=== PATIENT | male | born 1985 | race Two or more races ===

== ENCOUNTER 2021-06-24 10:40 | Emergency (ER) | payer OTHER, SELFPAY ==
--- NOTE | ~2021-06-24 | CT_ITS ---
EXAMINATION: CT HEAD WITHOUT CONTRAST CLINICAL INFORMATION: Right leg numbness/weakness for one week. COMPARISON: None TECHNIQUE: Contiguous axial imaging was performed from the skull base to vertex without intravenous administration of contrast. This CT examination was performed using dose optimization techniques as appropriate, variously including the following: *Automated exposure control *Adjustment of mA and/or kV according to patient size (this includes techniques or standardized protocols for targeted exams where dose is matched to indication/reason for exam; i.e. extremities or head) *Use of iterative reconstruction technique DLP: 874 mGy-cm FINDINGS: There is no evidence of acute intracranial hemorrhage or territorial infarction. No abnormal mass effect or midline shift is seen. Abreu to white matter differentiation is well preserved. No extra-axial fluid collections are identified. The ventricles are normal in size. There is no abnormal attenuation within the brain parenchyma. The osseous structures and soft tissues are normal. The mastoid air cells and visualized portions of the paranasal sinuses are well aerated. CT/CT head/brain wo con IMPRESSION: No acute intracranial process seen.
--- NOTE | ~2021-06-24 | XR_ITS ---
EXAMINATION: XR FOOT, RIGHT CLINICAL INFORMATION: Right dorsal foot pain and numbness COMPARISON: None TECHNIQUE: AP, lateral, and oblique views of the right foot. FINDINGS: The bones and soft tissues are normal. No fracture. Alignment is anatomic. Joint spaces are maintained. XR/XR foot RT min 3V IMPRESSION: Normal right foot.
[2021-06-24 10:50] VITALS: BP 135/73; PULSE 86; RESP 16; TEMP 37.2; O2SAT 95; BMI 32.5
--- NOTE | 2021-06-24 11:29 | ECG_ITS ---
Test Reason : SWELLING Blood Pressure : / mmHG Vent. Rate : 081 BPM Atrial Rate : 081 BPM P-R Int : 164 ms QRS Dur : 082 ms QT Int : 360 ms P-R-T Axes : 039 092 037 degrees QTc Int : 418 ms Normal sinus rhythm Rightward axis Borderline ECG No previous ECGs available Referred By: Sadia Milian Electronically Signed By:MENA PRADO
[2021-06-24 12:23] LABS: MANUAL DIFF FLAG NO
[2021-06-24 12:30] LABS: Basophils Absolute Auto 0.1 X10*3/uL (0.0-0.2); Basophils Percent Auto 0.7 % (0-2); Eosinophils Absolute Auto 0.4 X10*3/uL (0.0-0.4); Eosinophils Percent Auto 4.3 % (0-4); Hemoglobin 14.8 g/dl (14.0-18.0); Imm Gran Abs Auto 0.04 X10*3/uL (0.00-0.03); Imm Gran Pct Auto 0.5 % (0.0-0.4); Lymphocytes Absolute Auto 1.1 X10*3/uL (1.2-4.9); Lymphocytes Percent Auto 13.6 % (20-40); Mean Corpuscular HGB Conc 33.6 g/dl (31.0-36.0); Mean Corpuscular Hemoglobin 27.1 pg (27.0-33.0); Mean Corpuscular Volume 80.6 fL (80.0-98.0); Mean Platelet Volume 8.5 fL (9.4-12.4); Monocytes Absolute Auto 0.6 X10*3/uL (0.1-1.2); Monocytes Percent Auto 7.1 % (2-11); Neutrophils Absolute Auto 6.1 x10*3/uL (2.0-8.3); Neutrophils Percent Auto 73.8 % (45-73); Platelet Count 362 X10*3/uL (160-400); Red Blood Count 5.46 X10*6/uL (4.60-5.80); Red Cell Distribution Width 12.9 % (11.0-16.0); White Blood Count 8.3 X10*3/uL (4.8-10.8)
[2021-06-24 12:40] LABS: INTERNATIONAL NORM RATIO 1.2 (0.9-1.1); Prothrombin Time 13.2 SEC (9.9-13.0)
[2021-06-24 12:50] LABS: Alanine Aminotransferase 96 U/L (0-40); Albumin Level 4.4 g/dL (3.5-5.0); Alkaline Phosphatase 68 U/L (39-117); Anion Gap 14 (12-20); Aspartate Amino Transferase 27 U/L (5-37); Bilirubin Total 0.8 mg/dL (0.0-1.0); Blood Urea Nitrogen 11 mg/dL (9-16); Carbon Dioxide 24 mmol/L (22-29); Chloride 106 mmol/L (96-108); Creatinine Clr Calc Pharmacy 142.9; Estimated Glomerular Filt Rate > 60; Glucose Random 104 mg/dL (60-115); Magnesium 2.3 mg/dL (1.6-2.6); Potassium 4.3 mmol/L (3.3-5.1); Sodium 140 mmol/L (135-145); Total Protein 7.3 g/dL (6.5-8.0)
--- NOTE | 2021-06-24 12:50 | ED.GENADULT ---
HPI - General Adult General Chief complaint: Skin/Abscess/Foreign Body Stated complaint: STD check Time Seen by Provider: 06/24/21 11:05 Source: patient Mode of arrival: ambulatory Limitations: no limitations History of Present Illness HPI narrative: 36-year-old male with no significant past medical history presenting to the ED with multiple complaints which include lesions/sores to his mouth that started approximately 6 days ago after he had unprotected intercourse with the female that he reports ?was questionable as should not have slept with her?. His separate complaint is a wound to his right foot that started shortly after the lesions/sores on his lips and he believes that he might have scratched his foot after scratching his mouth/lips. He believes that the wound/lesion to his foot started shortly after the lesions/sores of his mouth. He reports that his right foot is usually much veneer drier feeder than the left foot and he is unsure why and is always very itchy. Although he has noticed in the past few days since he developed this wound to his right foot he has been having some numbness/tingling. He reports he feels like his gait is ?off as well he reports that he feels like his right leg/foot is weaker and he is walking with a limp. He reports a family history of diabetes. He wants to be tested for all STDs. He denies any fevers, chills, dizziness, headaches, neck pain/stiffness, trouble swallowing or breathing, recent falls or trauma, chest pain or shortness of breath, dyspnea on exertion, orthopnea, palpitations, lower extremity edema, calf tenderness, recent travel, PVD, recent immobilization, recent surgery or any other symptoms complaints or concerns at this time. MD complaint: Multiple complaints Onset (ago): day(s) (6) Related Data Previous Rx's Medication Instructions Recorded cephalexin 500 mg capsule 500 mg PO Q6H 10 Days #40 cap 06/24/21 doxycycline monohydrate 100 mg 100 mg PO BID 10 Days #20 cap 06/24/21 capsule valacyclovir 1 gram tablet 1,000 mg PO BID 10 Days #20 tab 06/24/21 (Valtrex) Allergies Allergy/AdvReac Type Severity Reaction Status Date / Time No Known Allergies Allergy Verified 06/24/21 11:29 Review of Systems Review of Systems: Constitutional : No Weight loss, No Fever, No Chills, No Night Sweats, No Fatigue, No Malaise ENT/Mouth : No Hearing loss, No Ear Pain, No Nasal Congestion, No Sinus Pain, No Hoarseness, No sore throat, No Rhinorrhea, No Swallowing Difficulty Eyes: No Eye Pain, No Swelling, No Redness, No Foreign Body, No Discharge, No Vision Changes Cardiovascular : No Chest Pain, No SOB, No Dyspnea on Exertion, No Orthopnea, No Edema, No Palpitations Respiratory : No Cough, No Sputum, No Wheezing, No Smoke Exposure, No Dyspnea Gastrointestinal : No Nausea, No Vomiting, No Diarrhea, No Constipation, No abdominal Pain, No Hematochezia, No Melena Genitourinary : no irregular bleeding, No Dysuria, No Urinary Frequency, No Hematuria, No Urinary Incontinence, No Urgency, No Flank Pain, No Urinary Flow Changes, No Hesitancy Musculoskeletal : No joint pain, No Myalgias, No Joint Swelling Skin : + Skin Lesions to lips and right foot Neuro : + paresthesias to right foot and mild weakness with limb per patient to right leg, No Loss of Consciousness, No Dizziness, No Headache Psych : No Anxiety/Panic, No Depression, No SI/HI/AH/VH, No Social Issues, Heme/Lymph: No Bruising, No Bleeding,No Lymphadenopathy Endocrine : No Polyuria, No Polydipsia, No Temperature Intolerance Patient denies a history of MRSA. Yes all other systems are reviewed and are negative COUNT INCLUDES THE [facility] Past Medical History Attestation statement: The following information was validated with the patient. Social History Social History Advance Directives: No Advance Directives Information Provided: No Physical Exam ED Vital Signs: Vital Signs - 24 hr 06/24/21 10:50 Temperature 98.9 F Pulse Rate 86 Respiratory Rate 16 Blood Pressure 135/73 Pulse Oximetry 95 BMI result Body Mass Index 32.5 vital signs have been reviewed as normal and appeared to be correct. Blood pressure normal. Heart rate normal. Respiration rate normal. Temperature normal. Oxygen saturation normal. Appearance: Alert. Oriented X3. No acute distress. Head: Normal external exam. Normocephalic. Atraumatic. Eyes: PERRLA. EOMI. Conjunctiva and sclera normal. Eyelids normal. ENT: Pharynx normal. Uvula midline. Patient has shallow ulcerated lesions to the lips that are tender to palpation questioning herpes simplex virus. Otherwise no additional lesions/ulcerations or masses noted on the tongue. Moist mucous membranes. Normal voice. No trismus noted. No drooling noted. No muffled voice noted. Neck: Normal inspection. Neck supple. FROM. No adenopathy. Thyroid Normal. No tracheal deviation noted. No crepitus is noted. No meningeal signs. No neck mass noted. No signs of trauma noted. CVS: Normal heart rate and rhythm. Heart sound normal. Pulses normal throughout. No murmurs/rales/gallops. Respiratory: No respiratory distress. Painless inspiration. Breath sounds normal. No wheezes/rales/rhonchi noted. Chest nontender. No crepitus is noted. No signs of trauma noted. No accessory muscle usage noted or decreased air movement noted. No signs of trauma. Abdomen: Soft and nontender. Bowel sounds normal in all 4 quadrants. No distention noted. No organomegaly noted. No visible injury noted. Back: No CVA tenderness. Full range of motion noted. Nontender. No signs of trauma. Patient neuro intact bilaterally and distally on all 4 extremities. Patient's reflexes intact bilaterally and distally on all 4 extremities. No rashes/lesion/induration/fluctuance or signs of infection noted. Skin: Skin warm and dry. Normal skin color. Normal skin turgor. No rashes/lesions/lacerations noted. Extremities: To the right foot dorsal aspect patient has a circular wound no surrounding erythema/streaking/induration/fluctuance or signs of infection noted. Otherwise all other extremities exhibit normal range of motion nontender. No lower extremity edema. No calf tenderness is noted. Neuro: Oriented X 3. No motor deficit. Patient reports decreased sensation to the right foot dorsal aspect although has normal sensation to the right leg. Otherwise no other sensory deficit. Reflexes normal. Normal steady gait. No focal neuro deficits noted. CN's II-XII intact bilaterally? Vascular: + radial pulses/+ 2 distal pedal pulses/+2 dorsalis pedis b/l. Normal cap refill. No cyanosis noted to upper extremity nails and lower extremity toes nails. Course Course Course Narrative: 11:30am - 36-year-old male with no significant past medical history presenting to the ED with multiple complaints which include lesions/sores to his mouth that started approximately 6 days ago after he had unprotected intercourse with the female that he reports ?was questionable as should not have slept with her?. His separate complaint is a wound to his right foot that started shortly after the lesions/sores on his lips and he believes that he might have scratched his foot after scratching his mouth/lips. He believes that the wound/lesion to his foot started shortly after the lesions/sores of his mouth. He reports that his right foot is usually much veneer drier feeder than the left foot and he is unsure why and is always very itchy. Although he has noticed in the past few days since he developed this wound to his right foot he has been having some numbness/tingling. He reports he feels like his gait is ?off as well he reports that he feels like his right leg/foot is weaker and he is walking with a limp. He reports a family history of diabetes. He wants to be tested for all STDs. He denies any rashes or lesions or discharge from the penis. Will obtain labs including an A1c level, CT scan of brain to evaluate for possible recent stroke over the past 6 days when this started the right leg weakness/numbness, obtain a syphilis/herpes and gonorrhea chlamydia order. Treat for herpes, EKG. And re-evaluate. Reevaluation(s) Reevaluation #1: - labs obtain ALT 96 otherwise all other labs are within normal limits. A1c level is 5.5. CT scan of brain within normal limits no acute processes noted. EKG normal sinus rhythm no acute ischemic changes noted. Right foot x-ray negative for any acute processes. Patient has syphilis/gonorrhea/chlamydia/herpes pending at this time. Will treat for possible herpes and possible foot wound/cellulitis instructions to follow-up with the wound clinic and to return if any new or worsening symptom to follow-up with primary care provider I gave him a list of providers that he can call to established a new primary care provider. Patient understands with and agrees with this plan. Time: 13:57 Medical Decision Making Medical Records Medical records reviewed: Yes I reviewed the patient's medical records. Lab Data Lab results reviewed: Yes I reviewed the patient's lab results. Result diagrams: 06/24/21 12:17 06/24/21 12:16 Labs: Lab Results 06/24/21 06/24/21 06/24/21 Range/Units 12:16 12:16 12:16 WBC (4.8-10.8) X10*3/uL RBC (4.60-5.80) X10*6/uL Hgb (14.0-18.0) g/dl Hct (42.0-52.0) % MCV (80.0-98.0) fL MCH (27.0-33.0) pg MCHC (31.0-36.0) g/dl RDW (11.0-16.0) % Plt Count (160-400) X10*3/uL MPV (9.4-12.4) fL Immature Gran % (Auto) (0.0-0.4) % Neut % (Auto) (45-73) % Lymph % (Auto) (20-40) % [place] % (Auto) (2-11) % Eos % (Auto) (0-4) % Baso % (Auto) (0-2) % Lymph # (Auto) (1.2-4.9) X10*3/uL [place] # (Auto) (0.1-1.2) X10*3/uL Eos # (Auto) (0.0-0.4) X10*3/uL Baso # (Auto) (0.0-0.2) X10*3/uL Abs Immat Gran (auto) (0.00-0.03) X10*3/uL Absolute Neuts (auto) (2.0-8.3) x10*3/uL Absolute Nucleated RBC (0.0-0.012) X10*3/uL Nucleated RBC % (auto) (0.0-0.2) /100WBC PT 13.2 H (9.9-13.0) SEC INR 1.2 H (0.9-1.1) Sodium 140 (135-145) mmol/L Potassium 4.3 (3.3-5.1) mmol/L Chloride 106 (96-108) mmol/L Carbon Dioxide 24 (22-29) mmol/L Anion Gap 14 (12-20) BUN 11 (9-16) mg/dL Creatinine 0.84 (0.5-1.4) mg/dL Estim Creat Clear Calc 142.9 Estimated GFR > 60 Random Glucose 104 (60-115) mg/dL Estimat Average Glucose 111 mg/dL Hemoglobin A1c % 5.5 % Calcium 10.0 (8.4-10.2) mg/dL Magnesium 2.3 (1.6-2.6) mg/dL Total Bilirubin 0.8 (0.0-1.0) mg/dL AST 27 (5-37) U/L ALT 96 H (0-40) U/L Alkaline Phosphatase 68 (39-117) U/L Total Protein 7.3 (6.5-8.0) g/dL Albumin 4.4 (3.5-5.0) g/dL 06/24/21 Range/Units 12:17 WBC 8.3 (4.8-10.8) X10*3/uL RBC 5.46 (4.60-5.80) X10*6/uL Hgb 14.8 (14.0-18.0) g/dl Hct 44.0 (42.0-52.0) % MCV 80.6 (80.0-98.0) fL MCH 27.1 (27.0-33.0) pg MCHC 33.6 (31.0-36.0) g/dl RDW 12.9 (11.0-16.0) % Plt Count 362 (160-400) X10*3/uL MPV 8.5 L (9.4-12.4) fL Immature Gran % (Auto) 0.5 H (0.0-0.4) % Neut % (Auto) 73.8 H (45-73) % Lymph % (Auto) 13.6 L (20-40) % [place] % (Auto) 7.1 (2-11) % Eos % (Auto) 4.3 H (0-4) % Baso % (Auto) 0.7 (0-2) % Lymph # (Auto) 1.1 L (1.2-4.9) X10*3/uL [place] # (Auto) 0.6 (0.1-1.2) X10*3/uL Eos # (Auto) 0.4 (0.0-0.4) X10*3/uL Baso # (Auto) 0.1 (0.0-0.2) X10*3/uL Abs Immat Gran (auto) 0.04 H (0.00-0.03) X10*3/uL Absolute Neuts (auto) 6.1 (2.0-8.3) x10*3/uL Absolute Nucleated RBC 0.000 (0.0-0.012) X10*3/uL Nucleated RBC % (auto) 0.0 (0.0-0.2) /100WBC PT (9.9-13.0) SEC INR (0.9-1.1) Sodium (135-145) mmol/L Potassium (3.3-5.1) mmol/L Chloride (96-108) mmol/L Carbon Dioxide (22-29) mmol/L Anion Gap (12-20) BUN (9-16) mg/dL Creatinine (0.5-1.4) mg/dL Estim Creat Clear Calc Estimated GFR Random Glucose (60-115) mg/dL Estimat Average Glucose mg/dL Hemoglobin A1c % % Calcium (8.4-10.2) mg/dL Magnesium (1.6-2.6) mg/dL Total Bilirubin (0.0-1.0) mg/dL AST (5-37) U/L ALT (0-40) U/L Alkaline Phosphatase (39-117) U/L Total Protein (6.5-8.0) g/dL Albumin (3.5-5.0) g/dL Imaging Data Right foot x-ray: Attestation: I personally reviewed and interpreted this imaging study as follows: Radiologist's impression: FINDINGS: The bones and soft tissues are normal. No fracture. Alignment is anatomic. Joint spaces are maintained.? XR/XR foot RT min 3V IMPRESSION: Normal right foot. CT scan of brain without contrast: Attestation: I personally reviewed and interpreted this imaging study as follows: Radiologist's impression: FINDINGS: There is no evidence of acute intracranial hemorrhage or territorial infarction. No abnormal mass effect or midline shift is seen. Abreu to white matter differentiation is well preserved. No extra-axial fluid collections are identified. The ventricles are normal in size. There is no abnormal attenuation within the brain parenchyma. The osseous structures and soft tissues are normal. The mastoid air cells and visualized portions of the paranasal sinuses are well aerated. ? CT/CT head/brain wo con IMPRESSION: No acute intracranial process seen. ECG Data Attestation: I personally reviewed and interpreted this ECG as follows: Interpretation: Normal sinus rhythm with ventricular rate of 81 with a right prabhakar axis deviation otherwise no acute ischemic changes are noted. No prior EKGs to compare to at this time. Discharge Plan Discharge Clinical Impression: Wound of foot, Encounter for assessment of STD exposure Patient Disposition: Home, Self-Care Instructions: Sexually Transmitted Diseases (ED), Safe Sex Practices (ED), Oral Herpes Simplex Virus Infections (ED), Acute Wounds (ED) Additional Instructions: You have pending lab results which include syphilis/gonorrhea/chlamydia and herpes culture if any are positive will contact you within 7-10 days. You can also check on the patient Portal sometime here results of, sooner than 1 week call you. We will not call you if you have negative results. Follow-up with her primary care provider. Use protected intercourse. Do not kiss anyone until your sores are gone. Prescriptions: New valacyclovir [Valtrex] 1 gram tablet 1,000 mg PO BID 10 Days Qty: 20 0RF doxycycline monohydrate 100 mg capsule 100 mg PO BID 10 Days Qty: 20 0RF cephalexin 500 mg capsule 500 mg PO Q6H 10 Days Qty: 40 0RF Print Language: Bolivian
[2021-06-24] MEDS: valACYclovir HCL 1,000 MG TABLET 1000 MG PO (13:25)
[2021-06-24 13:48] LABS: Estimated Average Glucose 111 mg/dL; Hemoglobin A1c % 5.5 %
[2021-06-24 17:54] LABS: CT PCR NOT DETECTED (Not Detect.); NG PCR NOT DETECTED (Not Detect.)
[2021-06-29 08:44] LABS: Syphilis Screen Nonreactive (Nonreactive)
== END 2021-06-24 15:33 | disposition home or self-care (01) ==
PROVIDERS: Physician Assistant Medical; Emergency Provider Emergency Medicine
DX: K13.79 Other lesions of oral mucosa (principal); Z20.2 Contact with and (suspected) exposure to infections with a predominantly sexual mode of transmission; S91.301A Unspecified open wound, right foot, initial encounter; X58.XXXA Exposure to other specified factors, initial encounter; Y93.9 Activity, unspecified; Y92.9 Unspecified place or not applicable; Y99.9 Unspecified external cause status
CPT/HCPCS: 36415; 70450; 73630; 80053; 83036; 83735; 85025; 85610; 86780; 87255; 87491; 87591; 93005; 99284

== ENCOUNTER 2021-07-28 05:01 | Emergency (ER) | payer MEDICAID, OTHER, SELFPAY ==
--- NOTE | ~2021-07-28 | XR_ITS ---
EXAMINATION: XR CHEST CLINICAL INFORMATION: Palpitations COMPARISON: None TECHNIQUE: Frontal view of the chest was obtained. FINDINGS: The lungs are clear with no focal consolidation. No evidence of pneumothorax, pulmonary edema, or pleural effusions. The cardiomediastinal silhouette is unremarkable. No acute osseous findings. XR/XR chest 1V IMPRESSION: No acute cardiopulmonary findings.
--- NOTE | 2021-07-28 05:09 | ECG_ITS ---
Test Reason : heart racing Blood Pressure : / mmHG Vent. Rate : 111 BPM Atrial Rate : 111 BPM P-R Int : 158 ms QRS Dur : 088 ms QT Int : 348 ms P-R-T Axes : 068 099 042 degrees QTc Int : 473 ms Sinus tachycardia Rightward axis Borderline ECG When compared to the previous EKG of No significant changes seen Referred By: Generic ED Physician Electronically Signed By:Raheem Castanon
[2021-07-28 05:22] VITALS: BP 158/86; PULSE 111; RESP 20; TEMP 36.4; O2SAT 96; BMI 31.7
[2021-07-28 05:23] LABS: Basophils Percent Auto 0.2 % (0-2); Eosinophils Absolute Auto 0.1 X10*3/uL (0.0-0.4); Eosinophils Percent Auto 0.5 % (0-4); Hematocrit 42.4 % (42.0-52.0); Hemoglobin 14.5 g/dl (14.0-18.0); Imm Gran Abs Auto 0.02 X10*3/uL (0.00-0.03); Imm Gran Pct Auto 0.2 % (0.0-0.4); Lymphocytes Percent Auto 9.8 % (20-40); MANUAL DIFF FLAG NO; Mean Corpuscular HGB Conc 34.2 g/dl (31.0-36.0); Mean Corpuscular Hemoglobin 27.3 pg (27.0-33.0); Mean Corpuscular Volume 79.8 fL (80.0-98.0); Mean Platelet Volume 8.2 fL (9.4-12.4); Monocytes Absolute Auto 0.7 X10*3/uL (0.1-1.2); Monocytes Percent Auto 6.9 % (2-11); Neutrophils Absolute Auto 8.3 x10*3/uL (2.0-8.3); Neutrophils Percent Auto 82.4 % (45-73); Platelet Count 331 X10*3/uL (160-400); Red Blood Count 5.31 X10*6/uL (4.60-5.80); Red Cell Distribution Width 13.2 % (11.0-16.0)
--- NOTE | 2021-07-28 05:37 | ED_ITS ---
HPI - Alcohol General Chief Complaint: ETOH/Substance Use Stated Complaint: ETOH Time Seen by Provider: 07/28/21 05:30 Source: patient Mode of arrival: ambulatory Limitations: no limitations History of Present Illness HPI narrative: Patient with history of alcohol abuse cocaine abuse for awhile today he came because he wants to go to detox he uses cocaine last night also had beer also patient has rash in the groin area for a while treated with a Lotrimin powder which did not work also patient want to be tested for STD he was here on 06/24 for same also patient had an episode of palpitations last night. Patient denies any penile discharge or urinary symptoms Related Data Previous Rx's Medication Instructions Recorded cephalexin 500 mg capsule 500 mg PO Q6H 10 Days #40 cap 06/24/21 doxycycline monohydrate 100 mg 100 mg PO BID 10 Days #20 cap 06/24/21 capsule valacyclovir 1 gram tablet 1,000 mg PO BID 10 Days #20 tab 06/24/21 (Valtrex) clotrimazole 1 % topical cream 1 appl TOPICAL BID #30 g 07/28/21 (Antifungal (clotrimazole)) Allergies Allergy/AdvReac Type Severity Reaction Status Date / Time No Known Allergies Allergy Verified 07/28/21 05:21 Review of Systems Review of Systems: Yes all other systems are reviewed and are negative [facility] Social History Social History Advance Directives: No Physical Exam ED Vital Signs: Vital Signs - 24 hr 07/28/21 05:22 Temperature 97.6 F Pulse Rate 111 H Respiratory Rate 20 Blood Pressure 158/86 H Pulse Oximetry 96 BMI result Body Mass Index 31.7 Appearance: Alert. Oriented X3. No acute distress. ENT: Pharynx normal. Oral Mucosa moist Neck: Normal inspection. Neck supple. CVS: Normal heart rate and rhythm. Pulses normal. Respiratory: No respiratory distress. Equal air entry bilateral, no wheezing/rales/rhonchi Abdomen: Soft and nontender. Bowel sounds are present, Skin: Skin warm and dry. Normal skin color. Normal skin turgor. IVDA track petra left forearm tinea cruris rash+ Extremities: No lower extremity edema. No calf tenderness Neuro: Oriented X 3. No motor deficit. No sensory deficit.No cerebellar signs , cranial nerves II-XII intact MDM - Alcohol MDM Narrative Medical decision making narrative: Patient advised to follow-up as outpatient for detox Medical Records Attestation: I reviewed the patient's medical records. Lab Data Attestation: I reviewed the patient's lab results. Result diagrams: 07/28/21 05:14 07/28/21 05:14 Labs: Lab Results 07/28/21 07/28/21 07/28/21 Range/Units 05:14 05:14 05:14 WBC 10.0 (4.8-10.8) X10*3/uL RBC 5.31 (4.60-5.80) X10*6/uL Hgb 14.5 (14.0-18.0) g/dl Hct 42.4 (42.0-52.0) % MCV 79.8 L (80.0-98.0) fL MCH 27.3 (27.0-33.0) pg MCHC 34.2 (31.0-36.0) g/dl RDW 13.2 (11.0-16.0) % Plt Count 331 (160-400) X10*3/uL MPV 8.2 L (9.4-12.4) fL Immature Gran % (Auto) 0.2 (0.0-0.4) % Neut % (Auto) 82.4 H (45-73) % Lymph % (Auto) 9.8 L (20-40) % [place] % (Auto) 6.9 (2-11) % Eos % (Auto) 0.5 (0-4) % Baso % (Auto) 0.2 (0-2) % Lymph # (Auto) 1.0 L (1.2-4.9) X10*3/uL [place] # (Auto) 0.7 (0.1-1.2) X10*3/uL Eos # (Auto) 0.1 (0.0-0.4) X10*3/uL Baso # (Auto) 0.0 (0.0-0.2) X10*3/uL Abs Immat Gran (auto) 0.02 (0.00-0.03) X10*3/uL Absolute Neuts (auto) 8.3 (2.0-8.3) x10*3/uL Absolute Nucleated RBC 0.000 (0.0-0.012) X10*3/uL Nucleated RBC % (auto) 0.0 (0.0-0.2) /100WBC Sodium 139 (135-145) mmol/L Potassium 3.5 (3.3-5.1) mmol/L Chloride 103 (96-108) mmol/L Carbon Dioxide 24 (22-29) mmol/L Anion Gap 16 (12-20) BUN 13 (9-16) mg/dL Creatinine 0.84 (0.5-1.4) mg/dL Estim Creat Clear Calc 141.3 Estimated GFR > 60 Random Glucose 105 (60-115) mg/dL Calcium 10.0 (8.4-10.2) mg/dL Troponin I High Sens < 3.5 (<3.5-35.0) ng/L Urine Color Urine Appearance Urine pH (5.0-8.0) Ur Specific [place]ike (1.005-1.025) Urine Protein (NEG-TRACE) MG/DL Urine Glucose (UA) (NEG) MG/DL Urine Ketones (NEG) MG/DL Urine Blood (NEG) Urine Nitrite (NEG) Ur Leukocyte Esterase (NEG) Urine RBC (0) /HPF Urine WBC (0-4) /HPF Ur Squamous Epith Cells /LPF Calcium Phosphate Cryst /LPF Amorphous Sediment /LPF Urine Bacteria /LPF Urine Mucus /LPF Urine Opiates Screen (Not Detect) Urine Fentanyl Screen (Not Detect) Ur Barbiturates Screen (Not Detect) Ur Phencyclidine Scrn (Not Detect) Ur Amphetamines Screen (Not Detect) U Benzodiazepines Scrn (Not Detect) Urine Cocaine Screen (Not Detect) U Marijuana (THC) Screen (Not Detect) Ethyl Alcohol mg/dL 07/28/21 07/28/21 07/28/21 Range/Units 05:14 05:48 05:48 WBC (4.8-10.8) X10*3/uL RBC (4.60-5.80) X10*6/uL Hgb (14.0-18.0) g/dl Hct (42.0-52.0) % MCV (80.0-98.0) fL MCH (27.0-33.0) pg MCHC (31.0-36.0) g/dl RDW (11.0-16.0) % Plt Count (160-400) X10*3/uL MPV (9.4-12.4) fL Immature Gran % (Auto) (0.0-0.4) % Neut % (Auto) (45-73) % Lymph % (Auto) (20-40) % [place] % (Auto) (2-11) % Eos % (Auto) (0-4) % Baso % (Auto) (0-2) % Lymph # (Auto) (1.2-4.9) X10*3/uL [place] # (Auto) (0.1-1.2) X10*3/uL Eos # (Auto) (0.0-0.4) X10*3/uL Baso # (Auto) (0.0-0.2) X10*3/uL Abs Immat Gran (auto) (0.00-0.03) X10*3/uL Absolute Neuts (auto) (2.0-8.3) x10*3/uL Absolute Nucleated RBC (0.0-0.012) X10*3/uL Nucleated RBC % (auto) (0.0-0.2) /100WBC Sodium (135-145) mmol/L Potassium (3.3-5.1) mmol/L Chloride (96-108) mmol/L Carbon Dioxide (22-29) mmol/L Anion Gap (12-20) BUN (9-16) mg/dL Creatinine (0.5-1.4) mg/dL Estim Creat Clear Calc Estimated GFR Random Glucose (60-115) mg/dL Calcium (8.4-10.2) mg/dL Troponin I High Sens (<3.5-35.0) ng/L Urine Color YELLOW Urine Appearance HAZY Urine pH 6.0 (5.0-8.0) Ur Specific [place] >= 1.030 H (1.005-1.025) Urine Protein 1+ H (NEG-TRACE) MG/DL Urine Glucose (UA) NEG (NEG) MG/DL Urine Ketones NEG (NEG) MG/DL Urine Blood NEG (NEG) Urine Nitrite NEG (NEG) Ur Leukocyte Esterase NEG (NEG) Urine RBC 0 (0) /HPF Urine WBC 0 (0-4) /HPF Ur Squamous Epith Cells NONE /LPF Calcium Phosphate Cryst 1+ /LPF Amorphous Sediment 1+ /LPF Urine Bacteria NONE /LPF Urine Mucus 2+ /LPF Urine Opiates Screen POSITIVE H (Not Detect) Urine Fentanyl Screen POSITIVE H (Not Detect) Ur Barbiturates Screen Not Detected (Not Detect) Ur Phencyclidine Scrn Not Detected (Not Detect) Ur Amphetamines Screen Not Detected (Not Detect) U Benzodiazepines Scrn Not Detected (Not Detect) Urine Cocaine Screen POSITIVE H (Not Detect) U Marijuana (THC) Screen Not Detected (Not Detect) Ethyl Alcohol < 10 mg/dL ECG Data ECG #1: Attestation: I personally reviewed and interpreted this ECG as follows: Interpretation: Sinus tachycardia heart rate 111 beats per minute normal interval normal axis no acute ST wave changes no acute ischemia Discharge Plan Discharge Clinical Impression: Alcohol abuse, Polysubstance abuse Patient Disposition: Home, Self-Care Instructions: Abuse of Alcohol (ED), Jock Itch (ED), Polysubstance Abuse (ED) Additional Instructions: Follow-up with detox Apply Lotrimin lotion as prescribed for jock itch Prescriptions: New clotrimazole [Antifungal (clotrimazole)] 1 % cream 1 appl topical BID Qty: 30 0RF No Action valacyclovir [Valtrex] 1 gram tablet 1,000 mg PO BID 10 Days Qty: 20 0RF doxycycline monohydrate 100 mg capsule 100 mg PO BID 10 Days Qty: 20 0RF cephalexin 500 mg capsule 500 mg PO Q6H 10 Days Qty: 40 0RF
[2021-07-28 05:39] LABS: Anion Gap 16 (12-20); Blood Urea Nitrogen 13 mg/dL (9-16); Carbon Dioxide 24 mmol/L (22-29); Chloride 103 mmol/L (96-108); Creatinine Clr Calc Pharmacy 141.3; Estimated Glomerular Filt Rate > 60; Glucose Random 105 mg/dL (60-115); Potassium 3.5 mmol/L (3.3-5.1); Sodium 139 mmol/L (135-145)
[2021-07-28 05:42] LABS: Ethanol < 10 mg/dL
[2021-07-28 05:45] LABS: Troponin-I High Sensitivity < 3.5 ng/L (<3.5-35.0)
--- NOTE | 2021-07-28 05:53 | PC.NURSE ---
Urine obtained and sent. at bedside for primary eval.
[2021-07-28 05:55] LABS: Appearance Urine HAZY; Color Urine YELLOW; Glucose Urine UA NEG (NEG); Leukocyte Esterase Urine NEG (NEG); Nitrite Urine NEG (NEG); Specific Gravity - Urine >= 1.030 (1.005-1.025); UACC Culture Trigger NO; Urine Blood NEG (NEG); Urine Ketones NEG (NEG); Urine Protein 1+ MG/DL (NEG-TRACE)
[2021-07-28 06:06] LABS: Amorphous Sediment Urine 1+ /LPF; Calcium Phosphate Crystals Ur 1+ /LPF; Mucus Urine 2+ /LPF; RBC Urine 0 /HPF (0); WBC Urine 0 /HPF (0-4)
[2021-07-28 06:11] LABS: Amphetamine Screen Urine Not Detected (Not Detect); Barbiturates, Urine Not Detected (Not Detect); Benzodiazepines Screen Urine Not Detected (Not Detect); Cannabinoid Screen Urine Not Detected (Not Detect); Cocaine Screen Urine POSITIVE (Not Detect); Fentanyl, urine POSITIVE (Not Detect); Opiate Screen Urine POSITIVE (Not Detect); Phencyclidine Screen Urine Not Detected (Not Detect)
--- NOTE | 2021-07-28 06:32 | PC.NURSE ---
This RN at bedside for discharge. Pt frustrated, stating I came here for help, I need to be sectioned. This RN providing pt with detox paperwork and a portable phone to begin calling detox centers. Pt agreeable to staying until 929 to speak with a cost recovery technician.
--- NOTE | 2021-07-28 06:46 | PC.NURSE ---
Pt requesting to leave, pt no longer wishes to speak to a employment coach. Pt provided with discharge paperwork and detox information.
[2021-07-28 09:03] LABS: CT PCR NOT DETECTED (Not Detect.); NG PCR NOT DETECTED (Not Detect.)
== END 2021-07-28 06:48 | disposition home or self-care (01) ==
PROVIDERS: Emergency Provider Internal Medicine
DX: F10.10 Alcohol abuse, uncomplicated (principal); Y90.0 Blood alcohol level of less than 20 mg/100 ml; R00.2 Palpitations; F11.10 Opioid abuse, uncomplicated; F14.10 Cocaine abuse, uncomplicated; Z79.899 Other long term (current) drug therapy
CPT/HCPCS: 36415; 71045; 80048; 80307; 81001; 81003; 82077; 84484; 85025; 87491; 87591; 93005; 99283; 99284

== ENCOUNTER 2021-08-04 19:58 | Emergency (ER) | payer MEDICAID, SELFPAY ==
[2021-08-04 20:11] VITALS: BP 156/61; PULSE 108; RESP 20; TEMP 37.4; O2SAT 96; BMI 31.7
--- NOTE | 2021-08-04 20:22 | PC.NURSE ---
[facility] at bedside
[2021-08-04 20:42] LABS: COVID-19 Test Negative (Negative)
[2021-08-04] MEDS: LORazepam 1 MG TABLET 2 MG PO (21:08)
--- NOTE | 2021-08-04 21:09 | PC.NURSE ---
LAN assessed the patient, disposition section 12 inpatient bed search, patient not happy with disposition, this medical technical writer explained section 12 A to the patient/patient verbalized understanding, Ativan 2 mg po administered as ordered/pending effect, will continue to monitor.
--- NOTE | 2021-08-04 21:38 | MHC.RECOVSUP ---
? Reason for consult:Recovery Support o Current location:[facility] o Identified substance use concern:N/A - Support ? Intervention: o Community resources provided o Harm reduction discussion ? Plan: o Referral to [facility] o Follow up tomorrow o Patient awaiting crisis evaluation o Patient to follow up with [facility] after discharge ? Additional information:Patient states hehad a Nervous Breakdown . Patient made vague SI statements. Patient denies any recent substance use. Suggested a BAL and / Tox screen to Dr. Love. Patient refuses detox. Patient was receptive to MAT and I referred him to the [facility]. Patient has a hx of MAT for his ETOH substance use disorder.( Vivitrol). [facility] sectioned him. Referred him to [facility] and gave him community resources.
[2021-08-04 22:20] LABS: Ethanol < 10 mg/dL
--- NOTE | 2021-08-04 23:24 | PC.NURSE ---
RN AWARE THAT PATIENT REFUSED TO GIVE THIS STAFF A URINE SAMPLE.
--- NOTE | 2021-08-04 23:31 | ED_ITS ---
HPI - Psych General Chief Complaint: ETOH/Substance Use Stated Complaint: SI Time Seen by Provider: 08/04/21 20:44 Source: patient and EMS Mode of arrival: EMS Limitations: no limitations History of Present Illness HPI Narrative: Patient comes to the emergency room by EMS. I have heard from [facility] that the patient was out in the street, causing a major scene, making suicidal statements. Police department had to close and entire Street in [place] and talked to the patient, and convince him to come to the hospital. It seems that the patient decided to call PD and EMS after she found the pa fredy's/her boyfriend hanging out with a group of people who are known to use drugs. Patient denies suicidal or homicidal ideation. Patient is tearful, not giving much history. Patient states he has been off his medications. Related Data Home Medications Medication Instructions Recorded Confirmed baclofen 10 mg tablet 1 tab PO TID 08/04/21 08/04/21 bupropion HCl 100 mg tablet 1 tab PO DAILY PRN 08/04/21 08/04/21 quetiapine 25 mg tablet 1 tab PO BEDTIME 08/04/21 08/04/21 Allergies Allergy/AdvReac Type Severity Reaction Status Date / Time No Known Allergies Allergy Verified 07/28/21 05:21 Review of Systems Review of Systems: Constitutional : No Weight loss, No Fever, No Chills, No Night Sweats, No Fatigue, No Malaise ENT/Mouth : No Hearing loss, No Ear Pain, No Nasal Congestion, No Sinus Pain, No Hoarseness, No sore throat, No Rhinorrhea, No Swallowing Difficulty Eyes: No Eye Pain, No Swelling, No Redness, No Foreign Body, No Discharge, No Vision Changes Cardiovascular : No Chest Pain, No SOB, No Dyspnea on Exertion, No Orthopnea, No Edema, No Palpitations Respiratory : No Cough, No Sputum, No Wheezing, No Smoke Exposure, No Dyspnea Gastrointestinal : No Nausea, No Vomiting, No Diarrhea, No Constipation, No abdominal Pain, No Hematochezia, No Melena Genitourinary : no irregular bleeding, No Dysuria, No Urinary Frequency, No Hematuria, No Urinary Incontinence, No Urgency, No Flank Pain, No Urinary Flow Changes, No Hesitancy Musculoskeletal : No joint pain, No Myalgias, No Joint Swelling Skin : No Skin Lesions, No rash Neuro : No Weakness, No Numbness, No Paresthesias, No Loss of Consciousness, No Dizziness, No Headache Psych : Complaining of anxiety, depression, states he had a nervous breakdown, made vague SI statements Heme/Lymph: No Bruising, No Bleeding,No Lymphadenopathy Endocrine : No Polyuria, No Polydipsia, No Temperature Intolerance [facility] Social History Social History Advance Directives: No Advance Directives Information Provided: Yes Physical Exam Vital Signs: Vital Signs: Last Vital Signs Temp 99.3 F 08/04/21 20:11 Pulse 108 H 08/04/21 20:11 Resp 20 08/04/21 20:11 BP 156/61 H 08/04/21 20:11 Pulse Ox 96 08/04/21 20:11 BMI result Body Mass Index 31.7 Const: Other: Appearance: Alert. Oriented X3. No acute distress. Tearful Eyes: Pupils equal, round and reactive to light. ENT: Pharynx normal. Neck: Normal inspection. Neck supple. No lymph nodes noted. No crepitus CVS: Normal heart rate and rhythm. Pulses normal. Normal S1 and S2 Respiratory: No respiratory distress. Breath sounds normal. No Wheezing. No rales Abdomen: Soft and nontender. No rigidity. No distention. Skin: Skin warm and dry. Normal skin color. Normal skin turgor. Extremities: No lower extremity edema. No Lacerations. No Rash Neuro: Oriented X 3. No motor deficit. No sensory deficit. Moving all extremities. No slurred speech. CN 2 through 12 grossly intact Psych: calm, since depressed, teary Course Course Course Narrative: [facility] and the women's soccer coach and myself spoke to the patient. Patient is not suicidal or homicidal. Patient admits to having a nervous breakdown. Patient will stay overnight in the [facility] and the [facility] team will re-evaluate the patient in the morning. At this time, patient refuses detox. Patient was sectioned by [facility] Patient agreed to a blood alcohol level for [facility] to evaluate the patient. Physician observationstarted at 23:35 I was informed by the patient's nurse that the urine test was requested. Patient agreed, but the patient came out of the bathroom with a urine cup filled with cold water [facility] - Psych Lab Data Labs: Lab Results 08/04/21 08/04/21 Range/Units 20:21 22:02 Ethyl Alcohol < 10 mg/dL COVID-19 (YONATHAN) Negative (Negative) COVID-19 Clin Com See Note Discharge Plan Discharge Clinical Impression: Post traumatic stress disorder Patient Disposition: Still a Patient Prescriptions: No Action quetiapine 25 mg tablet 1 tab PO BEDTIME 0RF bupropion HCl 100 mg tablet 1 tab PO DAILY PRN (Reason: Anxiety) 0RF baclofen 10 mg tablet 1 tab PO TID 0RF
[2021-08-05 06:24] VITALS: RESP 16
--- NOTE | 2021-08-05 06:35 | PC.NURSE ---
Patient slept through the night, no distress observed/reported, asymptomatic of withdrawal, refused to provide urine sample with no explanation as to why, med rec completed/pending provider's approval, disposition per [facility] is section 12 inpatient bed search, patient got upset and agitated when disposition was made aware, Ativan 2 mg po administered as ordered, behavior non concerning at this time with high risk for escalation, will continue to monitor.
--- NOTE | 2021-08-05 07:14 | PC.NURSE ---
patient appears to remain asleep at present respirations are even and unlabored patient appears in no distress
--- NOTE | 2021-08-05 12:23 | P.CNPS_ITS ---
History of Present Illness Date of Service: 08/05/2021 Chief Complaint: SI Discussed with referring provider: Yes Sources of Information: patient interviewed, chart reviewed and crisis/core team assessment reviewed HPI Narrative: Mr. Buchanan is a 36 year-old male with hx of opioid, cocaine use disorder who was brought via EMS after his GF called police as pt was increasingly more agitated. Per [facility] crisis report, Pt was screaming, combative, telling police to shoot him, that he had lost everything. In the ED his utox was positive for cocaine, fentanyl and opioids. In the ED, pt asking to be discharged. 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 Pt explained that his GF had called police as he was agitated prior to police coming to the scene. Pt does admit that cocaine use probably had something to do with his agitated reaction but also minimizes extend to which substances are affecting his mood and relationships in his life. Pt adamantly denies suicidal or homicidal ideation. Pt states he cares about his GF but understands that she was in shock by his behaviors and also understands she may not want him back to the apartment. Pt denies VH/AH. He does not appear psychotic. no delusional content reported or noted. Collateral information from GF, Angie: reports pt with increase substance use affecting their relationship, his relationsihp with his family. Angie reports asking him to get help. She notes he will end up alone, I can't take this. No concerns of suicidal ideation but notes that his ongoing substance use is affecting his mood. Angie reports more recent arguments due to his substance use. This check writer explained to Angie that at this point no imminent safety concerns in terms of suicidal or homicidal thoughts. However, pt chronic risk of self harm or harm to others due to substance use. Pt at this point declines referrals for substance use treatment or psychiatric follow up. Mr. Delatorre was given NARCAN prior to discharge after conversation of harm reduction. Diagnostics Vital Signs (24Hr): Vital Signs - 24 hr 08/04/21 20:11 08/05/21 06:24 Temperature 99.3 F Pulse Rate 108 H Respiratory Rate 20 16 Blood Pressure 156/61 H Pulse Oximetry 96 BMI result Body Mass Index 31.7 Labs Labs: Laboratory Results - last 48 hr 08/04/21 08/04/21 20:21 22:02 Ethyl Alcohol < 10 COVID-19 ([facility]ATHAN) Negative COVID-19 Clin Com See Note Mental Status Exam Mental Status Exam Narrative: Appearance: casually groomed, fair hygiene in NAD Behavior: guarded, irritable, superficially cooperative psychomotor: no agitation or retardation noted Speech:clear, normal rate/rhythm/volume, spontaneous Thought process: linear Thought content: no signs of psychosis/delusions, wanting to go to work Mood: okay Affect: somewhat irritable SI:adamantly denies HI:denies VH/AH:none Delusions:none Insight/judgment:poor x 2. Memory/cog: alert, oriented x 3. grossly intact to conversational testing. Medications Allergies Allergies Allergy/AdvReac Type Severity Reaction Status Date / Time No Known Allergies Allergy Verified 07/28/21 05:21 Assessment & Plan Assessment & Plan (1) Cocaine use disorder, moderate, dependence: Status: Acute Code(s): F14.20 - Cocaine dependence, uncomplicated (2) Opioid use disorder, moderate, dependence: Status: Acute Code(s): F11.20 - Opioid dependence, uncomplicated (3) Cocaine-induced mood disorder with depressive symptoms: Status: Acute Code(s): F14.94 - Cocaine use, unspecified with cocaine-induced mood disorder Plan Mr. Delatorre is a 36 year-old male with hx of opioid/cocaine use. Brought to [facility] ED after GF called police as pt agitated, vague suicidal statement. Pt currently denies suicidal or homicidal ideation. Collateral information from GF- mostly concern as to how substances affecting his relationships, ability to function and mood. No imminent safety concerns in terms of suicidal or homicidal ideation. Pt does minimize effects of substances on mood/relationships ability to function. He declines referrals for dual diagnosis programs. GIVEN NARCAN AT TIME OF DISCHARGE. PLAN 1. No need for inpatient psychiatric admission at this point in that there is no imminent safety concerns in terms of suicidal or homicidal ideation. Pt does have chronic risk of self harm or harm to other due to ongoing substance use (cocaine increases aggression, irritability, erradic behaviors) but not due to current active suicidality/homicidal concerns. Pt currently declines referral for programs for substance use. I spent _25 minutes with the patient and/or on the patient floor today, greater than?50% of which was spent counseling/coordinating care.
[2021-08-05] MEDS: Naloxone HCl Nasal TAKE HOME 4 MG SPRAY NOSTRILALT (12:29)
== END 2021-08-05 12:34 | disposition home or self-care (01) ==
PROVIDERS: Emergency Provider Emergency Medicine
DX: F43.10 Post-traumatic stress disorder, unspecified (principal); R45.851 Suicidal ideations; Z20.822 Contact with and (suspected) exposure to COVID-19
CPT/HCPCS: 36415; 82077; 87635; 99283

== ENCOUNTER 2021-08-06 18:52 | Emergency (ER) | payer MEDICAID, SELFPAY ==
--- NOTE | 2021-08-06 | ECG_ITS ---
Test Reason : OVERDOSE Blood Pressure : / mmHG Vent. Rate : 095 BPM Atrial Rate : 095 BPM P-R Int : 146 ms QRS Dur : 084 ms QT Int : 348 ms P-R-T Axes : 049 089 047 degrees QTc Int : 437 ms Normal sinus rhythm Normal ECG When compared with ECG of 28-JUL-2021 05:06, No significant change was found Referred By: Generic ED Physician Electronically Signed By:GUILLERMO BELTRAN MD
--- NOTE | ~2021-08-06 | XR_ITS ---
EXAMINATION: RIGHT ANKLE, RIGHT FOOT CLINICAL INFORMATION: Right ankle and foot pain COMPARISON: Right foot 06/24/2021 TECHNIQUE: 2 views right ankle, 3 views right foot FINDINGS: No significant bone, joint or soft tissue abnormality is seen. There is been no interval change when compared to the study from 06/24/2021 XR/XR foot RT min 3V IMPRESSION: No abnormality is detected.
--- NOTE | ~2021-08-06 | XR_ITS ---
EXAMINATION: XR CHEST CLINICAL INFORMATION: Shortness of breath COMPARISON: 07/28/2021 TECHNIQUE: Frontal view of the chest was obtained. FINDINGS: No significant abnormality is noted involving the heart, lungs, mediastinum, bony thorax or soft tissues. XR/XR chest 1V IMPRESSION: Unremarkable examination.
--- NOTE | ~2021-08-06 | XR_ITS ---
EXAMINATION: RIGHT ANKLE, RIGHT FOOT CLINICAL INFORMATION: Right ankle and foot pain COMPARISON: Right foot 06/24/2021 TECHNIQUE: 2 views right ankle, 3 views right foot FINDINGS: No significant bone, joint or soft tissue abnormality is seen. There is been no interval change when compared to the study from 06/24/2021 XR/XR ankle RT min 3V IMPRESSION: No abnormality is detected.
--- NOTE | ~2021-08-06 | US_ITS ---
EXAMINATION: US VENOUS ULTRASOUND WITH DOPPLER LOWER EXTREMITY, RIGHT CLINICAL INFORMATION: Right lower extremity edema, pain and swelling COMPARISON: None TECHNIQUE: Ultrasound of the deep veins is performed from the hip to the calf with compression sonography and color and pulse Doppler assessment. Spectral analysis with color-flow imaging is performed. FINDINGS: There is normal venous compression and respiratory variation and augmented flow. The visualized common femoral vein, superficial femoral vein, profunda femoral vein, popliteal vein, and the trifurcation region shows no evidence of deep venous thrombosis. There is no significant popliteal fossa cyst. Significant subcutaneous emphysema noted on the dorsum of the foot. If the patient's symptoms persist, followup ultrasound in 5 days 7 days might be of value to exclude proximal propagation from a non-visualized calf vein. US/US venous duplex LE RT IMPRESSION: No DVT demonstrated in the right lower extremity.
--- NOTE | 2021-08-06 19:22 | PC.NURSE ---
patient intially presented to ED in no distress and alert and oriented. patient went to bathroom and came out very disoriented and diaphoretic. patient reports doing coke, but while being triaged become solument and drops O2 sat 68% on RA. 4mg intranasal narcan administered. but still altered, but more alert. patient brought back from triage at this time
[2021-08-06] MEDS: Naloxone HCl Nasal 4 MG SPRAY NOSTRILALT (19:31)
[2021-08-06 19:42] VITALS: PULSE 95; RESP 16; O2SAT 99; BMI 31.0
[2021-08-06 19:47] VITALS: BP 124/80
--- NOTE | 2021-08-06 19:49 | ED.GENADULT ---
HPI - General Adult General Chief complaint: General Medical Stated complaint: crisis Time Seen by Provider: 08/06/21 19:48 Source: patient Mode of arrival: ambulatory Limitations: no limitations History of Present Illness HPI narrative: 36-year-old male presenting to the emergency department as a walk-in patient, unsure why patient initially presented however it was noted that patient was leaving the bathroom in the waiting room acting bizarre, or retic behavior, gasping for air. He was immediately rushed to the main emergency department and given Narcan as his pupils were pinpoint and he admits to cocaine use , when I asked him about opiates he says I do not think so. He tells me he thinks he did cocaine however he is not certain. Tells me he thinks he did 20 bags. He is an IV drug abuser. He is also complaining of right ankle/foot pain status post rolling his ankle while on the [employer] track earlier today. Patient is currently complaining of centralize nonradiating sharp 10/10 chest pain and palpitations. He tells me he was not having this before. He denies shortness of breath, nausea, vomiting, abdominal pain, back pain, headache, vision changes, dizziness. Denies SI and HI. Onset (ago): day(s) (1) Location: right (Ankle/foot) Radiation: non-radiation Severity: severe Severity scale (1-10): 10 Quality: constant Pain Consistency: constant Relieving factors: none Exacerbating factors: none Associated symptoms: denies other symptoms Treatments prior to arrival: none Related Data Home Medications Medication Instructions Recorded Confirmed baclofen 10 mg tablet 1 tab PO TID 08/04/21 08/06/21 bupropion HCl 100 mg tablet 1 tab PO DAILY PRN 08/04/21 08/06/21 quetiapine 25 mg tablet 1 tab PO BEDTIME 08/04/21 08/06/21 Allergies Allergy/AdvReac Type Severity Reaction Status Date / Time No Known Allergies Allergy Verified 07/28/21 05:21 Review of Systems Review of Systems: Constitutional : No Weight loss, No Fever, No Chills, No Fatigue, No Malaise ENT/Mouth : No sore throat, No Rhinorrhea Eyes: No Eye Pain, No Swelling, No Redness Cardiovascular : + Chest Pain, No SOB, No Dyspnea on Exertion, No Orthopnea, No Edema, + Palpitations Respiratory : No Cough, No Sputum, No Wheezing Gastrointestinal : No Nausea, No Vomiting, No Diarrhea, No Constipation, No abdominal Pain, No Hematochezia, No Melena Genitourinary : No Dysuria, No Urinary Frequency, No Hematuria, Musculoskeletal : No joint pain, No Myalgias, No Joint Swelling Skin : No Skin Lesions, No rash Neuro : No Weakness, No Numbness, No Dizziness, No Headache Psych : No Anxiety/Panic, No Depression All other systems reviewed and are negative Yes all other systems are reviewed and are negative [facility] Past Medical History Attestation statement: The following information was validated with the patient. Source: old records reviewed and nursing notes reviewed Social History Social History Advance Directives: No Physical Exam ED Vital Signs: Vital Signs - 24 hr 08/06/21 19:42 08/06/21 19:47 Pulse Rate 95 Respiratory Rate 16 Blood Pressure 124/80 Pulse Oximetry 99 BMI result Body Mass Index 31.0 Vital signs stable Appearance: Alert.? Oriented X3.? No acute distress.? Head: Normocephalic, atraumatic, no step-offs or deformities Eyes: Pupils equal, round and reactive to light.? Bilateral pupils pinpoint ENT: Pharynx normal.? Neck: Normal inspection.? Neck supple.? CVS: Normal heart rate and rhythm.? Pulses normal.? Respiratory: No respiratory distress.? Breath sounds normal.? Abdomen: Soft and nontender.? Skin: Skin warm and dry.? Normal skin color.? Normal skin turgor.? Extremities: No lower extremity edema.? No calf ttp. 5/5 strength to bilateral upper and lower extremities + ecchymosis, edema to right ankle/foot. 2+ dorsalis pedis and posterior tibialis pulses equal in bilateral on palpation and with auscultation with Doppler. Sensory motor intact to bilateral upper and lower extremities, no step-offs or deformities, no evident ligament or tendon involvement. Back: No midline tenderness, no C-spine tenderness, full range of motion, no CVA tenderness bilaterally Neuro: Oriented X 3.? No motor deficit.? No sensory deficit. CN 2-12 intact Course Reevaluation(s) Reevaluation #1: Care team Maria Elena spoke to patient patient arsenio SI and HI, would like referal to therapy and a detox program. passenger coach driver is speaking to patient at this time. Time: 20:30 Reevaluation #2: CBC within normal limits. Chemistry with no acute electrolyte abnormalities. Transaminases noted to be elevated, so his bilirubin however patient has no pain to palpation of abdomen. COVID negative. X-ray of the ankle no abnormalities. X-ray of the foot with no abnormalities. Chest x-ray unremarkable. Venous duplex with no DVT. Patient ambulating with steady gait, awake, alert and oriented x4. Patient will be placed in an air cast and will be given crutches. Advised him to follow-up with orthopedics. At this time patient appears much better, in no acute distress, stable vital signs. Patient denying SI and HI. He tells me he just wanted to speak to somebody in get information on how to possibly go to detox. Patient was evaluated by the care team and resource recovery engineer, both of which gave patient resources for outpatient detox. Patient will get a referral for therapy as discussed with him by care team, resource recovery engineer give patient detox information. Time: 23:13 Reevaluation #3: I went to go to speak to patient about discharge, slightly drowsy. Patient will stay until tomorrow morning and then get discharge as he does not have a safe ride home at this time. At this time patient will be placed in physician observation to allow more time for patient disposition based off improvement. At time observation was started patient common cooperative no acute distress. Time: 00:09 Medical Decision Making [facility] Narrative Medical decision making narrative: 1928 36-year-old male presents the emergency department for unknown reason however he was found to be gasping, with bizarre behavior after using the restroom in the waiting room. Patient admits to drug use, tells me he thinks use cocaine maybe was opiates he is uncertain he tells me use 20 bags IV. When they initially found him he was minimally responsive with pinpoint pupils, he was given Narcan with good response. Physical examination significant for male with bizarre retic behavior, uncontrolled movements of upper and lower extremities, swollen, ecchymotic right ankle/foot with 2+ posterior tibialis and dorsalis pedis pulses equal bilateral. No calf tenderness to palpation. Lungs clear. Regular rate and rhythm. Abdomen soft nontender nondistended. Bilateral pupils pinpoint Plan at this time is x-ray of the right ankle/foot, CBC, CMP, troponin, EKG, continuous cardiac monitoring. Medical Records Medical records reviewed: Yes I reviewed the patient's medical records. Lab Data Lab results reviewed: Yes I reviewed the patient's lab results. Result diagrams: 08/06/21 19:49 08/06/21 19:50 Labs: Lab Results 08/06/21 08/06/21 08/06/21 Range/Units 19:49 19:49 19:50 WBC 10.2 (4.8-10.8) X10*3/uL RBC 5.29 (4.60-5.80) X10*6/uL Hgb 14.4 (14.0-18.0) g/dl Hct 42.7 (42.0-52.0) % MCV 80.7 (80.0-98.0) fL MCH 27.2 (27.0-33.0) pg MCHC 33.7 (31.0-36.0) g/dl RDW 12.4 (11.0-16.0) % Plt Count 321 (160-400) X10*3/uL MPV 8.7 L (9.4-12.4) fL Immature Gran % (Auto) 0.3 (0.0-0.4) % Neut % (Auto) 75.2 H (45-73) % Lymph % (Auto) 12.4 L (20-40) % [place] % (Auto) 11.1 H (2-11) % Eos % (Auto) 0.5 (0-4) % Baso % (Auto) 0.5 (0-2) % Lymph # (Auto) 1.3 (1.2-4.9) X10*3/uL [place] # (Auto) 1.1 (0.1-1.2) X10*3/uL Eos # (Auto) 0.1 (0.0-0.4) X10*3/uL Baso # (Auto) 0.1 (0.0-0.2) X10*3/uL Abs Immat Gran (auto) 0.03 (0.00-0.03) X10*3/uL Absolute Neuts (auto) 7.6 (2.0-8.3) x10*3/uL Absolute Nucleated RBC 0.000 (0.0-0.012) X10*3/uL Nucleated RBC % (auto) 0.0 (0.0-0.2) /100WBC Sodium 140 (135-145) mmol/L Potassium 4.1 (3.3-5.1) mmol/L Chloride 101 (96-108) mmol/L Carbon Dioxide 29 (22-29) mmol/L Anion Gap 14 (12-20) BUN 17 H (9-16) mg/dL Creatinine 1.05 (0.5-1.4) mg/dL Estim Creat Clear Calc 111.8 Estimated GFR > 60 Random Glucose 99 (60-115) mg/dL Calcium 10.0 (8.4-10.2) mg/dL Total Bilirubin 1.3 H (0.0-1.0) mg/dL AST 105 H (5-37) U/L ALT 68 H (0-40) U/L Alkaline Phosphatase 67 (39-117) U/L Troponin I High Sens < 3.5 (<3.5-35.0) ng/L Total Protein 7.2 (6.5-8.0) g/dL Albumin 4.5 (3.5-5.0) g/dL Urine Opiates Screen (Not Detect) Urine Fentanyl Screen (Not Detect) Ur Barbiturates Screen (Not Detect) Ur Phencyclidine Scrn (Not Detect) Ur Amphetamines Screen (Not Detect) U Benzodiazepines Scrn (Not Detect) Urine Cocaine Screen (Not Detect) U Marijuana (THC) Screen (Not Detect) COVID-19 (YONATHAN) (Negative) COVID-19 Clin Com 08/06/21 08/06/21 Range/Units 21:44 22:24 WBC (4.8-10.8) X10*3/uL RBC (4.60-5.80) X10*6/uL Hgb (14.0-18.0) g/dl Hct (42.0-52.0) % MCV (80.0-98.0) fL MCH (27.0-33.0) pg MCHC (31.0-36.0) g/dl RDW (11.0-16.0) % Plt Count (160-400) X10*3/uL MPV (9.4-12.4) fL Immature Gran % (Auto) (0.0-0.4) % Neut % (Auto) (45-73) % Lymph % (Auto) (20-40) % [place] % (Auto) (2-11) % Eos % (Auto) (0-4) % Baso % (Auto) (0-2) % Lymph # (Auto) (1.2-4.9) X10*3/uL [place] # (Auto) (0.1-1.2) X10*3/uL Eos # (Auto) (0.0-0.4) X10*3/uL Baso # (Auto) (0.0-0.2) X10*3/uL Abs Immat Gran (auto) (0.00-0.03) X10*3/uL Absolute Neuts (auto) (2.0-8.3) x10*3/uL Absolute Nucleated RBC (0.0-0.012) X10*3/uL Nucleated RBC % (auto) (0.0-0.2) /100WBC Sodium (135-145) mmol/L Potassium (3.3-5.1) mmol/L Chloride (96-108) mmol/L Carbon Dioxide (22-29) mmol/L Anion Gap (12-20) BUN (9-16) mg/dL Creatinine (0.5-1.4) mg/dL Estim Creat Clear Calc Estimated GFR Random Glucose (60-115) mg/dL Calcium (8.4-10.2) mg/dL Total Bilirubin (0.0-1.0) mg/dL AST (5-37) U/L ALT (0-40) U/L Alkaline Phosphatase (39-117) U/L Troponin I High Sens (<3.5-35.0) ng/L Total Protein (6.5-8.0) g/dL Albumin (3.5-5.0) g/dL Urine Opiates Screen POSITIVE H (Not Detect) Urine Fentanyl Screen POSITIVE H (Not Detect) Ur Barbiturates Screen Not Detected (Not Detect) Ur Phencyclidine Scrn Not Detected (Not Detect) Ur Amphetamines Screen Not Detected (Not Detect) U Benzodiazepines Scrn Not Detected (Not Detect) Urine Cocaine Screen POSITIVE H (Not Detect) U Marijuana (THC) Screen Not Detected (Not Detect) COVID-19 (YONATHAN) Negative (Negative) COVID-19 Clin Com See Note ECG Data Attestation: I personally reviewed and interpreted this ECG as follows: Prior ECG tracings: available for review Interpretation: Ventricular rate of 95, ID normal, QRS normal, QT/QTC normal. EKG shows normal sinus rhythm no signs. No significant changes when compared to EKG from July 2021. Critical Care Time Critical Care Time Critical Care Time: No Discharge Plan Discharge Clinical Impression: Opioid use disorder, moderate, dependence, Cocaine use disorder, moderate, dependence Patient Disposition: Still a Patient Prescriptions: No Action quetiapine 25 mg tablet 1 tab PO BEDTIME 0RF bupropion HCl 100 mg tablet 1 tab PO DAILY PRN (Reason: Anxiety) 0RF baclofen 10 mg tablet 1 tab PO TID 0RF
[2021-08-06 19:56] LABS: MANUAL DIFF FLAG NO
[2021-08-06 20:04] LABS: Basophils Absolute Auto 0.1 X10*3/uL (0.0-0.2); Basophils Percent Auto 0.5 % (0-2); Eosinophils Absolute Auto 0.1 X10*3/uL (0.0-0.4); Eosinophils Percent Auto 0.5 % (0-4); Hematocrit 42.7 % (42.0-52.0); Hemoglobin 14.4 g/dl (14.0-18.0); Imm Gran Abs Auto 0.03 X10*3/uL (0.00-0.03); Imm Gran Pct Auto 0.3 % (0.0-0.4); Lymphocytes Absolute Auto 1.3 X10*3/uL (1.2-4.9); Lymphocytes Percent Auto 12.4 % (20-40); Mean Corpuscular HGB Conc 33.7 g/dl (31.0-36.0); Mean Corpuscular Hemoglobin 27.2 pg (27.0-33.0); Mean Corpuscular Volume 80.7 fL (80.0-98.0); Mean Platelet Volume 8.7 fL (9.4-12.4); Monocytes Absolute Auto 1.1 X10*3/uL (0.1-1.2); Monocytes Percent Auto 11.1 % (2-11); Neutrophils Absolute Auto 7.6 x10*3/uL (2.0-8.3); Neutrophils Percent Auto 75.2 % (45-73); Platelet Count 321 X10*3/uL (160-400); Red Blood Count 5.29 X10*6/uL (4.60-5.80); Red Cell Distribution Width 12.4 % (11.0-16.0); White Blood Count 10.2 X10*3/uL (4.8-10.8)
[2021-08-06 20:24] LABS: Alanine Aminotransferase 68 U/L (0-40); Albumin Level 4.5 g/dL (3.5-5.0); Alkaline Phosphatase 67 U/L (39-117); Anion Gap 14 (12-20); Aspartate Amino Transferase 105 U/L (5-37); Bilirubin Total 1.3 mg/dL (0.0-1.0); Blood Urea Nitrogen 17 mg/dL (9-16); Carbon Dioxide 29 mmol/L (22-29); Chloride 101 mmol/L (96-108); Creatinine Clr Calc Pharmacy 111.8; Estimated Glomerular Filt Rate > 60; Glucose Random 99 mg/dL (60-115); Potassium 4.1 mmol/L (3.3-5.1); Sodium 140 mmol/L (135-145); Total Protein 7.2 g/dL (6.5-8.0)
[2021-08-06 20:25] LABS: Troponin-I High Sensitivity < 3.5 ng/L (<3.5-35.0)
--- NOTE | 2021-08-06 20:36 | HO.SUDE ---
Pt declined SUDE. He would like detox/treatment.
--- NOTE | 2021-08-06 20:36 | MHC.CARE ---
CARE Team met with pt and pt is interested in therapy referral. CARE Team referred pt to [facility].
--- NOTE | 2021-08-06 21:00 | MHC.RECOVSUP ---
? Reason for consult:Recovery Support o Current location:ED 19 o Identified substance use concern:Cocaine/Heroin - Overdose - Seeking ATS (detox) - Support ? Intervention: o ATS bed search started/completed/in process o Harm reduction discussion ? Plan o Bed search in progress to o Follow up tomorrow o Patient awaiting crisis evaluation o Patient to follow up with HF after discharge ? Additional information:Patient denies any heroin use. Admits to using cocaine in the bathroom. Patient seeking detox. Referred patient to [facility] in [facility]. Patient agreeable to go there. Patient IS NOT medically cleared.
[2021-08-06 22:11] LABS: COVID-19 Test Negative (Negative)
[2021-08-06 23:20] LABS: Amphetamine Screen Urine Not Detected (Not Detect); Barbiturates, Urine Not Detected (Not Detect); Benzodiazepines Screen Urine Not Detected (Not Detect); Cannabinoid Screen Urine Not Detected (Not Detect); Cocaine Screen Urine POSITIVE (Not Detect); Fentanyl, urine POSITIVE (Not Detect); Opiate Screen Urine POSITIVE (Not Detect); Phencyclidine Screen Urine Not Detected (Not Detect)
[2021-08-06] MEDS: LORazepam 1 MG TABLET PO (23:38)
[2021-08-07 03:45] VITALS: BP 126/76; PULSE 87; RESP 16; TEMP 37.1; O2SAT 95
--- NOTE | 2021-08-07 05:03 | PC.NURSE ---
Patient slept through the night, no distress observed/reported, behavior appropriate and non concerning at this time, medication compliant, contracted for the safety, disposition per care team is voluntary bed search, VSS, will continue to monitor.
--- NOTE | 2021-08-07 05:07 | PC.NURSE ---
patient was up few times for bathroom use and back, currently in bed appears sleeping, patient has air cast on right foot per provider's order, no distress observed/reported, learning coach coordinating detox bed search, VSS, will continue to monitor.
[2021-08-07 08:58] VITALS: BP 128/73; PULSE 85; RESP 16; TEMP 36.8; O2SAT 96
--- NOTE | 2021-08-07 09:28 | MHC.RECOVSUP ---
Recovery Support note: This account underwriter followed up with patient to discuss substance use treatment options. Patient reports he is no longer interested in ATS, stating he would like to do an IOP in the evening so that he can continue working. Patient reports he does not experience withdrawal symptoms and states I don't use that much. Patient is not on Suboxone or methadone. Patient provided with information on evening IOP and ATS information in the event that he changes his mind regarding treatment. Discussed case with ED provider and RN.
--- NOTE | 2021-08-07 09:31 | PC.NURSE ---
PT EVALUATED BY CARE TEAM AND IS NOT SEEKING DETOX AT THIS TIME. PT WILL BE DISCHARGED TO HOME.
== END 2021-08-07 09:38 | disposition home or self-care (01) ==
PROVIDERS: Physician Assistant; Emergency Provider Internal Medicine
DX: F11.20 Opioid dependence, uncomplicated (principal); F14.20 Cocaine dependence, uncomplicated; R60.0 Localized edema; M79.604 Pain in right leg; M25.571 Pain in right ankle and joints of right foot; Z20.822 Contact with and (suspected) exposure to COVID-19
CPT/HCPCS: 36415; 71045; 73610; 73630; 80053; 80307; 84484; 85025; 87635; 93005; 93971; 99284

== ENCOUNTER 2021-08-07 19:14 | Emergency (ER) | payer MEDICAID, SELFPAY ==
--- NOTE | ~2021-08-07 | CT_ITS ---
EXAMINATION: CT ANGIOGRAM OF THE CHEST WITH AND WITHOUT CONTRAST (CT PULMONARY ANGIOGRAM FOR PE) CLINICAL INFORMATION: Reason for Exam sob , cp with elevated d dimer COMPARISON: Radiograph 08/07/2021 TECHNIQUE: Prior to contrast administration, noncontrast localization images were obtained. Subsequently, multidetector volumetric imaging was performed from the thoracic inlet to below the diaphragms following the administration of 70 mL Omnipaque 350 intravenous contrast. No contrast reaction reported Sagittal, coronal, and MIP oblique sagittal reformatted images were obtained on the CT workstation, uploaded to PACS, and reviewed. This CT examination was performed using dose optimization techniques as appropriate, variously including the following: *Automated exposure control *Adjustment of mA and/or kV according to patient size (this includes techniques or standardized protocols for targeted exams where dose is matched to indication/reason for exam; i.e. extremities or head) *Use of iterative reconstruction technique Total exam dose-length product 391 mGy-cm FINDINGS: QUALITY OF STUDY/CONTRAST BOLUS: Satisfactory. PULMONARY ARTERIES: No central or segmental pulmonary emboli. THORACIC AORTA: No aneurysm or dissection. LUNG: No focal consolidation, nodules or masses. The central airways are patent. PLEURA: No pleural effusion or pneumothorax. MEDIASTINUM: Normal heart size. No pericardial effusion. No hilar or mediastinal lymphadenopathy. Residual thymic tissue noted. No evidence of septal bowing or right heart strain. CHEST WALL/AXILLA: No axillary or internal mammary lymphadenopathy. OSSEOUS STRUCTURES: No acute or suspicious osseous abnormality. UPPER ABDOMEN: Unremarkable. No reflux of contrast into the hepatic veins to suggest elevated right heart pressures. CT/CT angio chest PE protocol IMPRESSION: No pulmonary embolism or other acute intrathoracic abnormality identified. VTE: negative
--- NOTE | ~2021-08-07 | XR_ITS ---
EXAMINATION: XR CHEST CLINICAL INFORMATION: Shortness of breath COMPARISON: Chest radiograph yesterday 08/06/2021 TECHNIQUE: Frontal view of the chest was obtained. FINDINGS: Compared to yesterday's study there's been no interval change. Once again, no significant abnormality is noted involving the heart, lungs, mediastinum, bony thorax or soft tissues. XR/XR chest 1V IMPRESSION: No acute intrathoracic disease.
[2021-08-07 19:27] VITALS: BP 132/89; BP 136/80; PULSE 93; PULSE 97; RESP 18; TEMP 36.6; O2SAT 100; O2SAT 98; BMI 31.7
--- NOTE | 2021-08-07 19:32 | ED_ITS ---
HPI - SOB/Dyspnea General Chief Complaint: Altered Mental Status Stated Complaint: diff breathing Time Seen by Provider: 08/07/21 19:32 Source: patient Mode of arrival: EMS History of Present Illness HPI Narrative: History of bipolar disorder substance abuse cocaine heroin IV drug user discharge to [facility] outpatient detox therapy earlier today comes back as having bizarre behavior with shortness of breath also complaining of chest pain which is going on for long time questionable desaturation to 40% at room air on arrival patient was non-rebreather saturating 100%. Patient used cocaine earlier today before going to detox MD elicited complaint: shortness of breath Related Data Home Medications Medication Instructions Recorded Confirmed baclofen 10 mg tablet 1 tab PO TID 08/04/21 08/06/21 bupropion HCl 100 mg tablet 1 tab PO DAILY PRN 08/04/21 08/06/21 quetiapine 25 mg tablet 1 tab PO BEDTIME 08/04/21 08/06/21 Allergies Allergy/AdvReac Type Severity Reaction Status Date / Time No Known Allergies Allergy Verified 07/28/21 05:21 Review of Systems Review of Systems: Yes all other systems are reviewed and are negative [facility] Social History Social History Advance Directives: No Advance Directives Information Provided: No Physical Exam Vital Signs: Vital Signs: Last Vital Signs Temp 98.3 F 08/08/21 00:42 Pulse 75 08/08/21 00:42 Resp 16 08/08/21 00:42 BP 118/85 08/08/21 00:42 Pulse Ox 98 08/08/21 00:42 Oxygen Flow Rate 10 08/07/21 19:27 BMI result Body Mass Index 31.7 Appearance: Alert. Oriented X3. No acute distress. Erratic behavior Eyes: PERRLA, No Nystagmus ENT: Pharynx normal. Oral Mucosa moist Neck: Normal inspection. Neck supple. CVS: Normal heart rate and rhythm. Pulses normal. Respiratory: No respiratory distress. Equal air entry bilateral, no wheezing/rales/rhonchi Abdomen: Soft and nontender. Bowel sounds are present, no mass palpable, no CVA tenderness Skin: Skin warm and dry. Normal skin color. Normal skin turgor. Extremities: No lower extremity edema. No calf tenderness left ankle swollen Neuro: Oriented X 3. No motor deficit. No sensory deficit.No cerebellar signs , cranial nerves II-XII intact MDM - SOB/Dyspnea MDM Narrative Medical decision making narrative: Patient's history of substance abuse used cocaine after discharge today came with his erratic behavior saturating 99% at room air lungs are clear COVID influenza also negative CTA chest done which was negative for PE will discharge him back to detox Lab Data Attestation: I reviewed the patient's lab results. Result diagrams: 08/07/21 20:04 08/07/21 20:03 Labs: Lab Results 08/07/21 08/07/21 08/07/21 Range/Units 19:49 19:49 20:03 WBC (4.8-10.8) X10*3/uL RBC (4.60-5.80) X10*6/uL Hgb (14.0-18.0) g/dl Hct (42.0-52.0) % MCV (80.0-98.0) fL MCH (27.0-33.0) pg MCHC (31.0-36.0) g/dl RDW (11.0-16.0) % Plt Count (160-400) X10*3/uL MPV (9.4-12.4) fL Immature Gran % (Auto) (0.0-0.4) % Neut % (Auto) (45-73) % Lymph % (Auto) (20-40) % [place] % (Auto) (2-11) % Eos % (Auto) (0-4) % Baso % (Auto) (0-2) % Lymph # (Auto) (1.2-4.9) X10*3/uL [place] # (Auto) (0.1-1.2) X10*3/uL Eos # (Auto) (0.0-0.4) X10*3/uL Baso # (Auto) (0.0-0.2) X10*3/uL Abs Immat Gran (auto) (0.00-0.03) X10*3/uL Absolute Neuts (auto) (2.0-8.3) x10*3/uL Absolute Nucleated RBC (0.0-0.012) X10*3/uL Nucleated RBC % (auto) (0.0-0.2) /100WBC PT 12.1 (9.9-13.0) SEC INR 1.1 (0.9-1.1) D-Dimer High Sensitivty 757 NG/ML Sodium (135-145) mmol/L Potassium (3.3-5.1) mmol/L Chloride (96-108) mmol/L Carbon Dioxide (22-29) mmol/L Anion Gap (12-20) BUN (9-16) mg/dL Creatinine (0.5-1.4) mg/dL Estim Creat Clear Calc Estimated GFR Random Glucose (60-115) mg/dL Calcium (8.4-10.2) mg/dL Total Bilirubin (0.0-1.0) mg/dL AST (5-37) U/L ALT (0-40) U/L Alkaline Phosphatase (39-117) U/L Troponin I High Sens (<3.5-35.0) ng/L Total Protein (6.5-8.0) g/dL Albumin (3.5-5.0) g/dL COVID-19 (YONATHAN) Negative (Negative) COVID-19 Clin Com See Note Influenza Type A (GORDO) Negative (Negative) Influenza Type B (GORDO) Negative (Negative) Influenza A & B Note See Note 08/07/21 08/07/21 08/07/21 Range/Units 20:03 20:03 20:04 WBC 8.0 (4.8-10.8) X10*3/uL RBC 4.77 (4.60-5.80) X10*6/uL Hgb 13.0 L (14.0-18.0) g/dl Hct 38.2 L (42.0-52.0) % MCV 80.1 (80.0-98.0) fL MCH 27.3 (27.0-33.0) pg MCHC 34.0 (31.0-36.0) g/dl RDW 12.6 (11.0-16.0) % Plt Count 273 (160-400) X10*3/uL MPV 8.7 L (9.4-12.4) fL Immature Gran % (Auto) 0.1 (0.0-0.4) % Neut % (Auto) 62.5 (45-73) % Lymph % (Auto) 21.6 (20-40) % [place] % (Auto) 11.4 H (2-11) % Eos % (Auto) 3.9 (0-4) % Baso % (Auto) 0.5 (0-2) % Lymph # (Auto) 1.7 (1.2-4.9) X10*3/uL [place] # (Auto) 0.9 (0.1-1.2) X10*3/uL Eos # (Auto) 0.3 (0.0-0.4) X10*3/uL Baso # (Auto) 0.0 (0.0-0.2) X10*3/uL Abs Immat Gran (auto) 0.01 (0.00-0.03) X10*3/uL Absolute Neuts (auto) 5.0 (2.0-8.3) x10*3/uL Absolute Nucleated RBC 0.000 (0.0-0.012) X10*3/uL Nucleated RBC % (auto) 0.0 (0.0-0.2) /100WBC PT (9.9-13.0) SEC INR (0.9-1.1) D-Dimer High Sensitivty NG/ML Sodium 140 (135-145) mmol/L Potassium 3.9 (3.3-5.1) mmol/L Chloride 105 (96-108) mmol/L Carbon Dioxide 28 (22-29) mmol/L Anion Gap 11 L (12-20) BUN 15 (9-16) mg/dL Creatinine 0.87 (0.5-1.4) mg/dL Estim Creat Clear Calc 136.4 Estimated GFR > 60 Random Glucose 108 (60-115) mg/dL Calcium 9.6 (8.4-10.2) mg/dL Total Bilirubin 0.9 (0.0-1.0) mg/dL AST 147 H (5-37) U/L ALT 93 H (0-40) U/L Alkaline Phosphatase 65 (39-117) U/L Troponin I High Sens < 3.5 (<3.5-35.0) ng/L Total Protein 6.7 (6.5-8.0) g/dL Albumin 4.1 (3.5-5.0) g/dL COVID-19 (YONATHAN) (Negative) COVID-19 Clin Com Influenza Type A (GORDO) (Negative) Influenza Type B (GORDO) (Negative) Influenza A & B Note ECG Data Attestation: I personally reviewed and interpreted this ECG as follows: Interpretation: Normal sinus rhythm heart rate 76 beats per minute normal interval rightward axis no acute ST T wave changes no acute ischemia Discharge Plan Discharge Clinical Impression: Cocaine use disorder, moderate, dependence, Chest pain Patient Disposition: Home, Self-Care Instructions: Cocaine Abuse (ED) Additional Instructions: Follow-up with detox Prescriptions: No Action quetiapine 25 mg tablet 1 tab PO BEDTIME 0RF bupropion HCl 100 mg tablet 1 tab PO DAILY PRN (Reason: Anxiety) 0RF baclofen 10 mg tablet 1 tab PO TID 0RF
--- NOTE | 2021-08-07 19:39 | ECG_ITS ---
Test Reason : ALTERED MENTAL STATUS Blood Pressure : / mmHG Vent. Rate : 076 BPM Atrial Rate : 076 BPM P-R Int : 146 ms QRS Dur : 088 ms QT Int : 380 ms P-R-T Axes : 069 092 057 degrees QTc Int : 427 ms Normal sinus rhythm with sinus arrhythmia Rightward axis Borderline ECG No significant changes when compared with the previous EKG of 06 aug 2021. Referred By: Johnnie Tam Electronically Signed By:MENA PRADO
[2021-08-07 20:11] LABS: MANUAL DIFF FLAG NO
[2021-08-07 20:13] LABS: Basophils Percent Auto 0.5 % (0-2); Eosinophils Absolute Auto 0.3 X10*3/uL (0.0-0.4); Eosinophils Percent Auto 3.9 % (0-4); Hematocrit 38.2 % (42.0-52.0); Imm Gran Abs Auto 0.01 X10*3/uL (0.00-0.03); Imm Gran Pct Auto 0.1 % (0.0-0.4); Lymphocytes Absolute Auto 1.7 X10*3/uL (1.2-4.9); Lymphocytes Percent Auto 21.6 % (20-40); Mean Corpuscular Hemoglobin 27.3 pg (27.0-33.0); Mean Corpuscular Volume 80.1 fL (80.0-98.0); Mean Platelet Volume 8.7 fL (9.4-12.4); Monocytes Absolute Auto 0.9 X10*3/uL (0.1-1.2); Monocytes Percent Auto 11.4 % (2-11); Neutrophils Percent Auto 62.5 % (45-73); Platelet Count 273 X10*3/uL (160-400); Red Blood Count 4.77 X10*6/uL (4.60-5.80); Red Cell Distribution Width 12.6 % (11.0-16.0)
[2021-08-07 20:39] LABS: Troponin-I High Sensitivity < 3.5 ng/L (<3.5-35.0)
[2021-08-07 20:40] LABS: COVID-19 Test Negative (Negative); IDNOW Serial# 55D5AD1C
[2021-08-07 20:45] LABS: Influenza A Negative (Negative); Influenza B2 Negative (Negative)
[2021-08-07 20:48] LABS: Alanine Aminotransferase 93 U/L (0-40); Albumin Level 4.1 g/dL (3.5-5.0); Alkaline Phosphatase 65 U/L (39-117); Anion Gap 11 (12-20); Aspartate Amino Transferase 147 U/L (5-37); Bilirubin Total 0.9 mg/dL (0.0-1.0); Blood Urea Nitrogen 15 mg/dL (9-16); Calcium 9.6 mg/dL (8.4-10.2); Carbon Dioxide 28 mmol/L (22-29); Chloride 105 mmol/L (96-108); Creatinine Clr Calc Pharmacy 136.4; Estimated Glomerular Filt Rate > 60; Glucose Random 108 mg/dL (60-115); Potassium 3.9 mmol/L (3.3-5.1); Sodium 140 mmol/L (135-145); Total Protein 6.7 g/dL (6.5-8.0)
[2021-08-07 21:51] LABS: INTERNATIONAL NORM RATIO 1.1 (0.9-1.1); Prothrombin Time 12.1 SEC (9.9-13.0)
[2021-08-07 21:53] LABS: D Dimer High Sensitivity 757 NG/ML
[2021-08-07] MEDS: 0.9 % Sodium Chloride 1,000 ML 999 ML IV (21:56)
[2021-08-08] MEDS: iohexoL 350 MG/ML 100 ML INFUS..BTL IV (00:17)
[2021-08-08 00:42] VITALS: BP 118/85; PULSE 75; RESP 16; TEMP 36.8; O2SAT 98
[2021-08-08 02:00] VITALS: BP 136/72; PULSE 72; RESP 16; TEMP 36.6; O2SAT 98
[2021-08-08 04:00] VITALS: BP 122/70; PULSE 72; RESP 16; TEMP 36.6; O2SAT 98
[2021-08-08 06:00] VITALS: BP 120/74; PULSE 72; RESP 16; TEMP 36.7; O2SAT 98
--- NOTE | 2021-08-08 09:30 | MHC.RECOVSUP ---
Recovery Support note: Patient is a 36 year old Finnish speaking male who presented to [facility] ED from [facility] due to low oxygen level and question of seizure activity. This verse writer met with patient to discuss transfer back to [facility]. Patient expressed interest in going back to the facility. This verse writer provided patient information to [facility] and was awaiting follow up when patient eloped. [facility] aware that patient will have to follow up with them directly.
== END 2021-08-08 09:30 | disposition left against medical advice (07) ==
PROVIDERS: Emergency Provider Internal Medicine
DX: R07.9 Chest pain, unspecified (principal); F14.20 Cocaine dependence, uncomplicated; F31.9 Bipolar disorder, unspecified; F11.10 Opioid abuse, uncomplicated; Z79.899 Other long term (current) drug therapy; Z20.822 Contact with and (suspected) exposure to COVID-19
CPT/HCPCS: 71045; 71275; 80053; 84484; 85025; 85379; 85610; 87502; 87635; 93005; 96360; 99283; 99284; Q9967

== ENCOUNTER 2021-12-04 16:24 | Emergency (ER) | payer MEDICAID, SELFPAY ==
--- NOTE | ~2021-12-04 | XR_ITS ---
EXAMINATION: XR HAND, LEFT CLINICAL INFORMATION: Foreign body in the thumb COMPARISON: None TECHNIQUE: PA, lateral, and oblique views of the left hand. FINDINGS: Linear 1.3 cm metallic foreign body projects in the soft tissues of the thenar eminence adjacent to the first metacarpal. No fracture or dislocation. Joint spaces throughout the hand and wrist are maintained. XR/XR hand LT min 3V IMPRESSION: 1. 1.3 cm linear metallic foreign body projects in the thenar eminence. 2. No acute osseous injury.
[2021-12-04 17:41] VITALS: BP 126/70; PULSE 85; RESP 18; TEMP 36.7; O2SAT 98; BMI 32.6
--- NOTE | 2021-12-04 17:48 | ED.GENADULT ---
HPI - General Adult General Chief complaint: Extremity Problem Stated complaint: metal in thumb Time Seen by Provider: 12/04/21 17:17 Source: patient Mode of arrival: ambulatory Limitations: no limitations History of Present Illness HPI narrative: Patient is a 36 year old male presenting to the emergency department today with left thumb pain. Patient states that a few days ago he was working with some wood after work and felt like he got something stuck in his left thumb. Patient states that it is very painful. Patient states that he used to be an IV drug user and he has been sober since the end of September 2021. Patient denies any dizziness, lightheadedness, abdominal pain, nausea, vomiting, fever, chills, blurry vision, double vision, loss of vision, chest pain, difficulty breathing, shortness of breath, back pain, night sweats, pain with urination, increased urinary frequency, increased urinary urgency, blood in his urine or stool, syncope or a near syncopal episode, recent trauma or falls, bowel incontinence, bladder incontinence, bowel retention, bladder retention, or any other complaints at this time. Patient states that he never used to shoot up in his hands or fingers. Onset (ago): day(s) Location: left and upper extremity Radiation: non-radiation Severity: mild Severity scale (1-10): 3 Quality: dull Pain Consistency: constant Relieving factors: none Exacerbating factors: none Associated symptoms: denies other symptoms Treatments prior to arrival: none Related Data Home Medications Medication Instructions Recorded Confirmed baclofen 10 mg tablet 1 tab PO TID 08/04/21 08/06/21 bupropion HCl 100 mg tablet 1 tab PO DAILY PRN Anxiety 08/04/21 08/06/21 quetiapine 25 mg tablet 1 tab PO BEDTIME 08/04/21 08/06/21 Previous Rx's Medication Instructions Recorded cephalexin 500 mg capsule 500 mg PO Q6H 7 days #28 caps 12/04/21 naproxen 500 mg tablet 500 mg PO BID 7 days #14 tabs 12/04/21 Allergies Allergy/AdvReac Type Severity Reaction Status Date / Time No Known Allergies Allergy Verified 07/28/21 05:21 Review of Systems Constitutional: Constitutional: Reports no additional constitutional complaints, Denies chills, Denies fever(s) and Denies night sweats Eyes: Eyes: Reports no additional eye complaints, Denies blurry vision, Denies change in vision, Denies diplopia, Denies eye discharge, Denies loss of vision and Denies eye pain ENT: Denies dizziness Cardiovascular: Cardiovascular: Reports no additional cardiovascular complaints, Denies chest pain, Denies lightheadedness, Denies Loss of Consciousness and Denies dyspnea Respiratory: Respiratory: Reports no additional respiratory complaints and Denies dyspnea Gastrointestinal: Gastrointestinal: Reports no additional gastrointestinal complaints, Denies abdominal pain, Denies melena, Denies hematochezia, Denies change in bowel habits and Denies change in stool character Comments: left thumb pain Genitourinary: Genitourinary: Reports no additional male genitourinary complaints, Denies hematuria, Denies oliguria, Denies difficulty urinating, Denies dysuria, Denies urinary frequency, Denies urinary hesitancy, Denies urinary incontinence and Denies urinary urgency Musculoskeletal: Musculoskeletal: Reports no additional musculoskeletal complaints, Denies numbness and Denies tingling Neurologic: Denies dizziness, Denies loss of vision, Denies numbness and Denies tingling Psychiatric: Psychiatric: Reports no additional psychiatric complaints Endocrine: Endocrine: Reports no additional endocrine complaints Hematologic/Lymphatic: Hematologic/Lymphatic: Reports no additional hematologic/lymphatic complaints Allergic/Immunologic: Allergic/Immunologic: Reports no additional allergic/immunologic complaints [facility] Past Medical History Attestation statement: The following information was validated with the patient. Source: old records reviewed Social History Social History Advance Directives: No Advance Directives Information Provided: Yes Physical Exam ED Vital Signs: Vital Signs - 24 hr 12/04/21 17:41 Temperature 98.1 F Pulse Rate 85 Respiratory Rate 18 Blood Pressure 126/70 Pulse Oximetry 98 Oxygen Delivery Method Room Air BMI result Body Mass Index 32.6 Const General: cooperative, no acute distress, alert and awake Nutritional Appearance: well nourished Orientation/consciousness: patient oriented x3 Limitations: no limitations HENMT Head: Yes normal to inspection and Yes atraumatic Ears: hearing grossly normal bilaterally and external ears normal General nose exam: Normal external nose present, no nasal discharge noted and no epistaxis Face and sinus: Yes normal facial exam, No abrasion and No laceration Mouth: Normal oral and palatal mucosa present, no drooling and no muffled voice Eyes General: appearance normal, both eyes and all related structures Periorbital: periorbital findings normal Eyelids: Yes eyelids normal Conjunctivae: conjunctivae normal Pupils: Equal, round and reactive pupils present EOM: EOMs intact bilaterally Neck Neck: Yes normal visual inspection, Yes full ROM and Yes no lymphadenopathy Chest Chest palpation & inspection: normal inspection of the chest Resp Effort & Inspection: normal respiratory effort and able to speak in complete sentences Auscultation: clear to auscultation bilaterally Cardio Rate: regular rate Rhythm: regular rhythm GI Inspection: Yes normal to inspection Neuro General: patient oriented x3 and moves all extremities Cranial nerves: Yes Equal, round and reactive pupils present Cognition (Neuro): normal cognition Motor exam (neuro): 5/5 motor strength present throughout Sensory Exam: Normal double simultaneous stimulation for sensation Coordination: [id number] test normal Extrem Other: swelling to the left thumb tip General: Yes full ROM and Yes capillary refill normal Psych Appearance: grossly normal Mental Status: mental status grossly normal Affect: normal affect Attitude: cooperative Thought process: Normal thought process present Thought content: Normal thought content present Insight: Good insight present (Psych) Medical Decision Making [facility] Narrative Medical decision making narrative: Patient is a 36 year old male presenting to the emergency department today with a left thumb injury. Patient's physical exam showed swelling, warmth, and erythema to the left thumb tip. Patient's left thumb x-ray showed a 1.3cm linear metallic foreign body that projects in the thenar eminence. Patient's injury is on the tip of the left thumb, not over the thenar eminence. I believe the foreign object to be an incidental finding and the left thumb tip injury is retained organic material, such as wood/splinter. I explained my physical exam findings as well as all test results to the patient. I answered all questions asked by the patient. Patient was brought up to date on his tetanus. I stressed the importance of the patient taking his medication as prescribed. I stressed the importance of the patient following up with his primary care provider and calling the orthopedic office first thing on the morning of 12/05/2021. I stressed the importance of the patient returning to the emergency department immediately if his symptoms were to worsen or if he were to develop any dizziness, shortness of breath, difficulty breathing, chest pain, blurry vision, loss of vision, nausea, vomiting, abdominal pain, fever, chills, back pain, or any other complaints. Patient verbalized agreement and understanding with this treatment plan and discharge. Medical Records Medical records reviewed: Yes I reviewed the patient's medical records. Imaging Data Left hand x-ray: Attestation: I personally reviewed and interpreted this imaging study as follows: My impression: Retained foreign body in the thenar eminence. Radiologist's impression: EXAMINATION: XR HAND, LEFT CLINICAL INFORMATION: Foreign body in the thumb? COMPARISON: None? TECHNIQUE: PA, lateral, and oblique views of the left hand. FINDINGS: Linear 1.3 cm metallic foreign body projects in the soft tissues of the thenar eminence adjacent to the first metacarpal. No fracture or dislocation. Joint spaces throughout the hand and wrist are maintained. XR/XR hand LT min 3V IMPRESSION: ? 1. 1.3 cm linear metallic foreign body projects in the thenar eminence. 2. No acute osseous injury. Dictated By: Gonzalez Martines Signed By: Electronically signed by Gonzalez?Conrad 12/04/21 0694 Discharge Plan Discharge Clinical Impression: Splinter Patient Disposition: Home, Self-Care Instructions: Soft Tissue Foreign Body (ED) Additional Instructions: Call the orthopedic office first thing tomorrow, 12/05/2021. Follow up with your primary care provider. Return to the emergency department immediately if your symptoms worsen or if you develop any dizziness, shortness of breath, difficulty breathing, chest pain, blurry vision, loss of vision, nausea, vomiting, abdominal pain, fever, chills, back pain, or any other complaints. Prescriptions: New cephalexin 500 mg capsule 500 mg PO Q6H 7 Days Qty: 28 0RF naproxen 500 mg tablet 500 mg PO BID 7 Days Qty: 14 0RF No Action quetiapine 25 mg tablet 1 tab PO BEDTIME bupropion HCl 100 mg tablet 1 tab PO DAILY PRN (Reason: Anxiety) baclofen 10 mg tablet 1 tab PO TID Referrals: [facility] [Provider Group] (Call first thing on 12/05/2021) [place],[facility] [Primary Care Provider] - Stand Alone Forms: Work/School Release Print Language: Spanish
[2021-12-04] MEDS: Diphth,Pertus(ACell),Tet Adult 0.5 ML SYRINGE IM (18:37)
== END 2021-12-04 18:49 | disposition home or self-care (01) ==
PROVIDERS: Emergency Provider Internal Medicine
DX: S60.352A Superficial foreign body of left thumb, initial encounter (principal); S60.312A Abrasion of left thumb, initial encounter; Y28.9XXA Contact with unspecified sharp object, undetermined intent, initial encounter; Y93.9 Activity, unspecified; Y92.9 Unspecified place or not applicable; Y99.9 Unspecified external cause status; Z79.899 Other long term (current) drug therapy
CPT/HCPCS: 20520; 73130; 90471; 90715; 99282; 99284

== ENCOUNTER 2021-12-25 03:55 | Emergency (ER) | payer MEDICAID, SELFPAY ==
[2021-12-25 04:15] VITALS: BP 128/73; PULSE 91; RESP 16; TEMP 37.9; O2SAT 99; BMI 31.0
--- NOTE | 2021-12-25 04:18 | PC.NURSE ---
Notified the POD and spoke to BJORN Teixeira regarding pt. Labs drawn and pt walked to the pod.
[2021-12-25 04:38] LABS: Hematocrit 43.6 % (42.0-52.0); Hemoglobin 14.7 g/dl (14.0-18.0); Mean Corpuscular HGB Conc 33.7 g/dl (31.0-36.0); Mean Corpuscular Hemoglobin 26.8 pg (27.0-33.0); Mean Corpuscular Volume 79.6 fL (80.0-98.0); Mean Platelet Volume 8.5 fL (9.4-12.4); Platelet Count 329 X10*3/uL (160-400); Red Blood Count 5.48 X10*6/uL (4.60-5.80); Red Cell Distribution Width 12.4 % (11.0-16.0); White Blood Count 11.1 X10*3/uL (4.8-10.8)
[2021-12-25 04:44] VITALS: TEMP 37.5
[2021-12-25 04:55] LABS: COVID-19 Test Negative (Negative); IDNOW Serial# 9DB6401D
[2021-12-25 05:01] LABS: Alanine Aminotransferase 37 U/L (0-40); Albumin Level 4.8 g/dL (3.5-5.0); Alkaline Phosphatase 68 U/L (39-117); Anion Gap 19 (12-20); Aspartate Amino Transferase 30 U/L (5-37); Blood Urea Nitrogen 18 mg/dL (9-16); Calcium 9.8 mg/dL (8.4-10.2); Carbon Dioxide 21 mmol/L (22-29); Chloride 104 mmol/L (96-108); Creatinine Clr Calc Pharmacy 124.9; Estimated Glomerular Filt Rate > 60; Ethanol < 10 mg/dL; Glucose Random 117 mg/dL (60-115); Potassium 4.3 mmol/L (3.3-5.1); Sodium 140 mmol/L (135-145); Total Protein 7.5 g/dL (6.5-8.0)
[2021-12-25 05:09] LABS: Appearance Urine Clear; Color Urine Dark Yellow; Glucose Urine UA Negative (Negative); Leukocyte Esterase Urine Trace (Negative); Nitrite Urine Negative (Negative); PH 5.5 (5.0-9.0); Specific Gravity - Urine >= 1.030 (1.005-1.025); UMIC TRIGGER UACC YES; Urine Blood Negative (Negative); Urine Ketones 40 mg/dL (Negative); Urine Protein 30 (1+) mg/dL (Neg-Trace)
[2021-12-25 05:14] LABS: Bacteria Urine None Seen (None Seen); Hyaline Casts Urine 0-2 /LPF (0-2); RBC Urine 0-2 /HPF (0-2); Squamous Epithelial Cell Urine 0-2 /HPF (0-2); WBC Urine 0-5 /HPF (0-5)
[2021-12-25 05:23] LABS: Amphetamine Screen Urine Not Detected (Not Detect); Barbiturates, Urine Not Detected (Not Detect); Benzodiazepines Screen Urine Not Detected (Not Detect); Cannabinoid Screen Urine Not Detected (Not Detect); Cocaine Screen Urine POSITIVE (Not Detect); Fentanyl, urine POSITIVE (Not Detect); Opiate Screen Urine Not Detected (Not Detect); Phencyclidine Screen Urine Not Detected (Not Detect)
--- NOTE | 2021-12-25 06:17 | PC.NURSE ---
Patient slept through the night, no distress observed/reported, behavior non concerning, [facility] referral completed/confirmed/pending ETA, med rec completed/pending provider's approval, VSS, will continue to monitor.
[2021-12-25 09:16] VITALS: BP 118/64; PULSE 92; RESP 17; TEMP 36.6; O2SAT 96
--- NOTE | 2021-12-25 09:33 | ED_ITS ---
HPI - Psych General Chief Complaint: Psychiatric Symptoms Stated Complaint: crisis Time Seen by Provider: 12/25/21 07:02 History of Present Illness HPI Narrative: Patient is a 36-year-old male presents today with having suicidal ideations. Positive cocaine positive heroin. Patient denies any fever chills. No diaphoresis. No abdominal pain. Patient from home. Positive thoughts of wanting to kill himself by using recreational drugs. Related Data Home Medications Medication Instructions Recorded Confirmed bupropion HCl 150 mg 24 hr tablet, 1 tab PO QAM 12/25/21 12/25/21 extended release quetiapine 25 mg tablet 0.5 tab PO BEDTIME PRN insomnia 12/25/21 12/25/21 Allergies Allergy/AdvReac Type Severity Reaction Status Date / Time No Known Allergies Allergy Verified 07/28/21 05:21 Review of Systems Review of Systems: No fever no chills no chest pain or shortness breath no nausea no vomiting Yes all other systems are reviewed and are negative [facility] Past Medical History Attestation statement: The following information was validated with the patient. Social History Social History Advance Directives: No Physical Exam Vital Signs: Vital Signs: Last Vital Signs Temp 97.9 F 12/25/21 09:16 Pulse 92 12/25/21 09:16 Resp 17 12/25/21 09:16 BP 118/64 12/25/21 09:16 Pulse Ox 96 12/25/21 09:16 O2 Del Method 12/25/21 09:16 BMI result Body Mass Index 31.0 Appearance: Alert. Oriented X3. No acute distress. Eyes: Pupils equal, round and reactive to light. ENT: Pharynx normal. Neck: Normal inspection. Neck supple. No lymph nodes noted. No crepitus CVS: Normal heart rate and rhythm. Pulses normal. Normal S1 and S2 Respiratory: No respiratory distress. Breath sounds normal. No Wheezing. No rales Abdomen: Soft and nontender. No rigidity. No distention. good BS x4 Skin: Skin warm and dry. Normal skin color. Normal skin turgor. Extremities: No lower extremity edema. Neurovascular intact to all extremities. No Lacerations. No Rash Neuro: Oriented X 3. No motor deficit. No sensory deficit. Moving all extermities. No slurred speech. Cranial nerves grossly intact MDM - Psych MDM Narrative Medical decision making narrative: Well-appearing no acute distress. Awaiting crisis evaluation. Seen by crisis. Patient will be going to detox. Currently in stable condition. Medical Records Attestation: I reviewed the patient's medical records. Lab Data Attestation: I reviewed the patient's lab results. Result diagrams: 12/25/21 04:30 12/25/21 04:30 Labs: Lab Results 12/25/21 12/25/21 12/25/21 Range/Units 04:19 04:30 04:30 WBC 11.1 H (4.8-10.8) X10*3/uL RBC 5.48 (4.60-5.80) X10*6/uL Hgb 14.7 (14.0-18.0) g/dl Hct 43.6 (42.0-52.0) % MCV 79.6 L (80.0-98.0) fL MCH 26.8 L (27.0-33.0) pg MCHC 33.7 (31.0-36.0) g/dl RDW 12.4 (11.0-16.0) % Plt Count 329 (160-400) X10*3/uL MPV 8.5 L (9.4-12.4) fL Absolute Nucleated RBC 0.000 (0.0-0.012) X10*3/uL Nucleated RBC % (auto) 0.0 (0.0-0.2) /100WBC Sodium 140 (135-145) mmol/L Potassium 4.3 (3.3-5.1) mmol/L Chloride 104 (96-108) mmol/L Carbon Dioxide 21 L (22-29) mmol/L Anion Gap 19 (12-20) BUN 18 H (9-16) mg/dL Creatinine 0.94 (0.5-1.4) mg/dL Estim Creat Clear Calc 124.9 Estimated GFR > 60 Random Glucose 117 H (60-115) mg/dL Calcium 9.8 (8.4-10.2) mg/dL Total Bilirubin 1.0 (0.0-1.0) mg/dL AST 30 D (5-37) U/L ALT 37 (0-40) U/L Alkaline Phosphatase 68 (39-117) U/L Total Protein 7.5 (6.5-8.0) g/dL Albumin 4.8 (3.5-5.0) g/dL Urine Color Urine Appearance Urine pH (5.0-9.0) Ur Specific [place] (1.005-1.025) Urine Protein (Neg-Trace) mg/dL Urine Glucose (UA) (Negative) mg/dL Urine Ketones (Negative) mg/dL Urine Blood (Negative) Urine Nitrite (Negative) Ur Leukocyte Esterase (Negative) Urine RBC (0-2) /HPF Urine WBC (0-5) /HPF Ur Squamous Epith Cells (0-2) /HPF Urine Bacteria (None Seen) Hyaline Casts (0-2) /LPF Urine Opiates Screen (Not Detect) Urine Fentanyl Screen (Not Detect) Ur Barbiturates Screen (Not Detect) Ur Phencyclidine Scrn (Not Detect) Ur Amphetamines Screen (Not Detect) U Benzodiazepines Scrn (Not Detect) Urine Cocaine Screen (Not Detect) U Marijuana (THC) Screen (Not Detect) Ethyl Alcohol < 10 mg/dL COVID-19 (YONATHAN) Negative (Negative) COVID-19 Clin Com See Note 12/25/21 12/25/21 Range/Units 04:59 04:59 WBC (4.8-10.8) X10*3/uL RBC (4.60-5.80) X10*6/uL Hgb (14.0-18.0) g/dl Hct (42.0-52.0) % MCV (80.0-98.0) fL MCH (27.0-33.0) pg MCHC (31.0-36.0) g/dl RDW (11.0-16.0) % Plt Count (160-400) X10*3/uL MPV (9.4-12.4) fL Absolute Nucleated RBC (0.0-0.012) X10*3/uL Nucleated RBC % (auto) (0.0-0.2) /100WBC Sodium (135-145) mmol/L Potassium (3.3-5.1) mmol/L Chloride (96-108) mmol/L Carbon Dioxide (22-29) mmol/L Anion Gap (12-20) BUN (9-16) mg/dL Creatinine (0.5-1.4) mg/dL Estim Creat Clear Calc Estimated GFR Random Glucose (60-115) mg/dL Calcium (8.4-10.2) mg/dL Total Bilirubin (0.0-1.0) mg/dL AST (5-37) U/L ALT (0-40) U/L Alkaline Phosphatase (39-117) U/L Total Protein (6.5-8.0) g/dL Albumin (3.5-5.0) g/dL Urine Color Dark Yellow Urine Appearance Clear Urine pH 5.5 (5.0-9.0) Ur Specific [place] >= 1.030 H (1.005-1.025) Urine Protein 30 (1+) H (Neg-Trace) mg/dL Urine Glucose (UA) Negative (Negative) mg/dL Urine Ketones 40 (Negative) mg/dL Urine Blood Negative (Negative) Urine Nitrite Negative (Negative) Ur Leukocyte Esterase Trace H (Negative) Urine RBC 0-2 (0-2) /HPF Urine WBC 0-5 (0-5) /HPF Ur Squamous Epith Cells 0-2 (0-2) /HPF Urine Bacteria None Seen (None Seen) Hyaline Casts 0-2 (0-2) /LPF Urine Opiates Screen Not Detected (Not Detect) Urine Fentanyl Screen POSITIVE H (Not Detect) Ur Barbiturates Screen Not Detected (Not Detect) Ur Phencyclidine Scrn Not Detected (Not Detect) Ur Amphetamines Screen Not Detected (Not Detect) U Benzodiazepines Scrn Not Detected (Not Detect) Urine Cocaine Screen POSITIVE H (Not Detect) U Marijuana (THC) Screen Not Detected (Not Detect) Ethyl Alcohol mg/dL COVID-19 (YONATHAN) (Negative) COVID-19 Clin Com Discharge Plan Discharge Clinical Impression: Cocaine use disorder, moderate, dependence, Opioid use disorder, moderate, dependence Patient Disposition: Home, Self-Care Instructions: Opioid Use Disorder (ED), Cocaine Abuse (ED) Prescriptions: No Action bupropion HCl 150 mg tablet extended release 24 hr 1 tab PO QAM quetiapine 25 mg tablet 0.5 tab PO BEDTIME PRN (Reason: insomnia) Referrals: Physician,Unknown J [Primary Care Provider] - (Please follow-up as per [facility]. Please go to detox)
[2021-12-25] MEDS: buPROPion HCl XL 150 MG TAB.ER.24H PO (11:28)
--- NOTE | 2021-12-25 12:50 | MHC.RECOVSUP ---
Recovery Support note: Patient is a 36 year old Montenegrin speaking male who presented to [facility] ED due to SI in the context of substance use. Patient was seen by LAN and referred to this sign writer hand for assistance getting into ATS. Patient reports he has been trying to get into treatment for several weeks. Patient is requesting to go far away, stating he has to get out of the area. [facility] did not have any open beds at this time. Patient completed intake with [facility] and was accepted for treatment. Patient's girlfriend met with patient prior to discharge. She will be transporting patient to facility. Address and number provided. Encouraged patient and girlfriend to contact facility when they are on the road to provide an ETA.
== END 2021-12-25 12:35 | disposition home or self-care (01) ==
PROVIDERS: Emergency Provider Emergency Medicine Emergency Medical Services
DX: F33.1 Major depressive disorder, recurrent, moderate (principal); R45.851 Suicidal ideations; F11.29 Opioid dependence with unspecified opioid-induced disorder; F14.29 Cocaine dependence with unspecified cocaine-induced disorder; Z20.822 Contact with and (suspected) exposure to COVID-19; Z79.899 Other long term (current) drug therapy
CPT/HCPCS: 36415; 80053; 80307; 81001; 82077; 85027; 87635; 99284